=== PATIENT | male | born 1965 | race Two or more races ===

== ENCOUNTER 2017-06-22 12:40 | Outpatient (CLI) | payer MEDICARE, MEDICAID ==
[~2017-06-22 12:40] MED LIST: NORCO 5-325 TA1 EACH ORAL
--- NOTE | 2017-06-22 14:46 | Diagnostic Imaging Report ---
Indications: Headaches and facial droop for one month Technique: Sagittal and axial T1 weighted fast spin-echo, axial T2-weighted fat saturated fast spin echo, T2-weighted FLAIR, T2*-weighted gradient echo, and diffusion sequences of the brain were performed prior to IV gadolinium administration. Axial and coronal T1 weighted fast spin-echo was performed following IV gadolinium administration. Findings: Comparison: None Few small circumscribed foci of T2 signal hyperintensity scattered throughout bilateral cerebral periventricular and deep white matter.. No evidence of mass or hemorrhage, other signal abnormality, mass effect, midline shift, hydrocephalus, or increased intracranial pressure. No restricted diffusion. No abnormal enhancement. Central vascular flow voids preserved. IMPRESSION: Bilateral cerebral white matter oligofocal T2 signal hyperintensity, nonspecific, likely chronic microangiopathic Otherwise Negative MRI of the brain without and with gadolinium.
--- NOTE | 2017-06-23 07:48 | Cardiology Report ---
APPROVED REPORT EXAM: Two-dimensional and M-mode echocardiogram with Doppler and color Doppler. INDICATION CVA/TIA M-Mode DIMENSIONS IVSd1.4 (0.7-1.1cm)Left Atrium (MM)4.0 (1.6-4.0cm) LVDd4.7 (3.5-5.6cm)Aortic Root3.5 (2.0-3.7cm) PWd1.3 (0.7-1.1cm)Aortic Cusp Exc.2.3 (1.5-2.0cm) LVDs3.0 (2.5-4.0cm) PWs2.0 cm Normal left ventricular chamber size, systolic function and wall motion. Left ventricular ejection fraction estimated to be 65-70 %. Mild left ventricular hypertrophy. Anterior Echo-free space, may be due to pericardial fat or effusion. All other cardiac chamber sizes are within normal limits. Mild focal aortic valve sclerosis with adequate cusp excursion. Mildly thickened mitral valve leaflets with normal excursion. Mild mitral annulus and aortic root calcification. Normal pulmonic valve structure. Normal tricuspid valve structure. IVC at normal size with physiologic collapse. No thrombus seen. A color flow and spectral Doppler study was performed and revealed: Trace aortic regurgitation. Trace mitral regurgitation. Mitral diastolic velocities suggest reduced left ventricular relaxation c/w mild LV diastolic dysfunction (Grade I). Trace to mild tricuspid regurgitation. Tricuspid systolic velocities suggests peak right ventricular systolic pressure of 33 mmHg.
== END 2017-06-22 14:40 | disposition home or self-care (01) ==
LOC: MRI 12:40
DX: R51 Headache (principal); R29.810 Facial weakness; Z86.73 Personal history of transient ischemic attack (TIA), and cerebral infarction without residual deficits
CPT/HCPCS: 70553; 93306; A9585

== ENCOUNTER 2020-01-25 15:44 | Inpatient (IN) | payer MEDICARE, MEDICAID ==
[~2020-01-25] VITALS: Ht 160 cm; Wt 77.1 kg
--- NOTE | 2020-01-25 15:55 | NUR ---
ED Nurse Note: ambulated to ed from home c/o abdominal pain 03/10 and nvd x 01/21/20. pt reports current diarrhea. ao4 nad vss. ambulates with steady gait. changed into gown; attached to monitor; safety measures met. pt had one episode of diarrhea after received from triage. bedside commode at bedside.
[2020-01-25] MEDS ORDERED: ISENTRESS400 MG ORAL (15:58)
[2020-01-25] MEDS ORDERED: EPIVIR150 MG ORAL (15:58)
--- NOTE | 2020-01-25 16:11 | Emergency Room Report ---
History of Present Illness General Chief Complaint: Nausea, Vomiting, and Diarrhea Source: Patient Present Illness HPI 54-year-old male history of HIV presents with acute nausea vomiting diarrhea x3 days no aggravating relieving factors severity is moderate, constant he endorses abdominal cramps denies any blood hematemesis, patient has been taking his HIV medication every day except for the past 3 days due to inability to tolerate p.o. patient states his HIV is undetectable and his CD4 count is greater than 700 patient presents for evaluation Allergies: Coded Allergies: ATAZANAVIR (Verified Allergy, Unknown, 11/24/11) CALCIUM CARBONATE (Verified Allergy, Unknown, 11/24/11) DELAVIRDINE (Verified Allergy, Unknown, 11/24/11) MAGNESIUM (Verified Allergy, Unknown, 11/24/11) MOXIFLOXACIN (Verified Allergy, Unknown, RASH,ITCH, 11/26/11) TENOFOVIR (Verified Allergy, Unknown, 11/24/11) VENLAFAXINE (Verified Allergy, Unknown, 11/24/11) COVID-19 Screening Contact w/high risk pt: No Recent Travel to affected area: No Experienced COVID-19 symptoms?: No Patient History Past Medical History: see triage record Reviewed Nursing Documentation: PMH: Agreed; PSxH: Agreed Nursing Documentation-PMH Past Medical History: No History, Except For Hx Cardiac Problems: No - HIV Review of Systems All Other Systems: negative except mentioned in HPI Physical Exam Vital Signs Date Time Temp Pulse Resp B/P (MAP) Pulse Ox O2 Delivery O2 Flow Rate FiO2 01/25/20 15:52 98.4 102 17 147/88 (107) 99 Room Air Sp02 EP Interpretation: reviewed, normal General Appearance: well appearing, no apparent distress, alert Head: normocephalic, atraumatic Eyes: bilateral eye PERRL, bilateral eye EOMI ENT: uvula midline, dry mucus membranes Neck: supple, thyroid normal, supple/symm/no masses Respiratory: lungs clear, no respiratory distress, no retraction, no accessory muscle use Cardiovascular #1: normal peripheral pulses, no edema, no gallop, no murmur, tachycardia Gastrointestinal: non tender, soft, no guarding, no rebound Musculoskeletal: normal inspection Neurologic: alert, oriented x3 Psychiatric: mood/affect normal Skin: no rash, warm/dry Medical Decision Making Diagnostic Impression: Primary Impression: Nausea, vomiting, and diarrhea Additional Impressions: Enteritis Pancreatitis Qualified Codes: K85.90 - Acute pancreatitis without necrosis or infection, unspecified Dehydration ER Course 54-year-old male history of HIV presents with elevated lipase, generalized abdominal pain, differential diagnosis includes enteritis, pancreatitis, diverticulitis Patient with pancreatitis as well as enteritis We will admit patient for supportive care pain control patient admitted to Dr. Mcleod Laboratory Tests Test 01/25/20 16:20 White Blood Count 7.3 K/UL (4.8-10.8) Red Blood Count 5.02 M/UL (4.70-6.10) Hemoglobin 17.4 G/DL (14.2-18.0) Hematocrit 50.1 % (42.0-52.0) Mean Corpuscular Volume 100 FL (80-99) H Mean Corpuscular Hemoglobin 34.6 PG (27.0-31.0) H Mean Corpuscular Hemoglobin Concent 34.7 G/DL (32.0-36.0) Red Cell Distribution Width 11.6 % (11.6-14.8) Platelet Count 251 K/UL (150-450) Mean Platelet Volume 7.5 FL (6.5-10.1) Neutrophils (%) (Auto) 47.4 % (45.0-75.0) Lymphocytes (%) (Auto) 33.3 % (20.0-45.0) Monocytes (%) (Auto) 16.8 % (1.0-10.0) H Eosinophils (%) (Auto) 0.1 % (0.0-3.0) Basophils (%) (Auto) 2.3 % (0.0-2.0) H Sodium Level 137 MMOL/L (136-145) Potassium Level 3.3 MMOL/L (3.5-5.1) L Chloride Level 99 MMOL/L (98-107) Carbon Dioxide Level 27 MMOL/L (21-32) Anion Gap 11 mmol/L (5-15) Blood Urea Nitrogen 21 mg/dL (7-18) H Creatinine 1.4 MG/DL (0.55-1.30) H Estimated Glomerular Filtration Rate 52.4 mL/min (>60) Glucose Level 103 MG/DL (74-106) Calcium Level 8.9 MG/DL (8.5-10.1) Total Bilirubin 0.9 MG/DL (0.2-1.0) Aspartate Amino Transferase (AST) 41 U/L (15-37) H Alanine Aminotransferase (ALT) 48 U/L (12-78) Alkaline Phosphatase 148 U/L (46-116) H Total Protein 8.9 G/DL (6.4-8.2) H Albumin 4.4 G/DL (3.4-5.0) Globulin 4.5 g/dL Albumin/Globulin Ratio 1.0 (1.0-2.7) Lipase 860 U/L (73-393) H Last Vital Signs Date Time Temp Pulse Resp B/P (MAP) Pulse Ox O2 Delivery O2 Flow Rate FiO2 01/25/20 15:52 98.4 102 17 147/88 (107) 99 Room Air Disposition: ADMITTED INPATIENT Condition: Stable Harsh Burton MD Jan 25, 2020 16:11
[2020-01-25] MEDS ORDERED: Omnipaque-300 100ml vial INJ PRN (16:15)
--- NOTE | 2020-01-25 16:15 | NUR ---
ED Nurse Note: iv access established. blood and urine collected; sent down to lab
[2020-01-25 16:39] VITALS: BP 147/88
[2020-01-25 16:53] LABS: BASOPHILS % (AUTO) 2.3 % (0.0-2.0); EOSINOPHILS % (AUTO) 0.1 % (0.0-3.0); HEMATOCRIT 50.1 % (42.0-52.0); HEMOGLOBIN 17.4 G/DL (14.2-18.0); LYMPHOCYTES % (AUTO) 33.3 % (20.0-45.0); MEAN CORPUSCULAR VOLUME 100 FL (80-99); MONOCYTES % (AUTO) 16.8 % (1.0-10.0); NEUTROPHILS % (AUTO) 47.4 % (45.0-75.0); PLATELET COUNT 251 K/UL (150-450); RED BLOOD COUNT 5.02 M/UL (4.70-6.10); RED CELL DISTRIBUTION WIDTH 11.6 % (11.6-14.8); WHITE BLOOD COUNT 7.3 K/UL (4.8-10.8)
[2020-01-25 17:08] LABS: ANION GAP 11 mmol/L (5-15); BLOOD UREA NITROGEN 21 mg/dL (7-18); CALCIUM 8.9 MG/DL (8.5-10.1); CARBON DIOXIDE 27 MMOL/L (21-32); CHLORIDE 99 MMOL/L (98-107); CREATININE 1.4 MG/DL (0.55-1.30); POTASSIUM 3.3 MMOL/L (3.5-5.1); SODIUM 137 MMOL/L (136-145)
[2020-01-25 17:25] LABS: ALANINE AMINOTRANSFERASE 48 U/L (12-78); ALBUMIN 4.4 G/DL (3.4-5.0); ALKALINE PHOSPHATASE 148 U/L (46-116); ASPARTATE AMINO TRANSFERASE 41 U/L (15-37); BILIRUBIN,TOTAL 0.9 MG/DL (0.2-1.0)
--- NOTE | 2020-01-25 18:00 | NUR ---
ED Nurse Note: patient resting in bed with no acute signs of distress. repostioned for comfort. denies pain at this time. discussed plan of care; pt aware of pending admission. belongings list completed with patient.
--- NOTE | 2020-01-25 18:27 | Diagnostic Imaging Report ---
Indication: Pain Technique: CT of the abdomen and pelvis utilizing automated exposure control with intravenous contrast. Venous scanning performed. Axial, sagittal and coronal reformats presented. CT dose: Total DLP 309.8 mGycm; CTDI vol 6.3 mGy Comparison: 08/10/2016 Findings: Dependent and expiratory atelectatic changes noted in the lung bases. Partially imaged heart normal in size. No pericardial effusion. There is a tiny hiatal hernia. Hepatic contour appears smooth. No focal hepatic mass lesion appreciated on this single phase exam. Hepatic veins and portal veins appear patent. There are no CT evident gallstones or pericholecystic inflammatory changes. No biliary ductal dilatation. Spleen, adrenal glands and pancreas unremarkable. No peripancreatic inflammatory changes or fluid collections. Kidneys enhance symmetrically. There is a punctate subcentimeter nonobstructing stone in the midpole the left kidney. Small low-attenuation well-circumscribed foci noted in the kidneys most likely representing cysts although they're too small for definitive characterization. No evidence of hydronephrosis or perinephric stranding. Bladder is decompressed, precluding reliable evaluation. Coarse calcifications noted within a mildly prominent prostate. There is no free intraperitoneal air or fluid. Fluid attenuation noted within some nondistended small bowel loops as well as within the right colon. No pericolonic or perienteric inflammatory stranding. There is colonic diverticulosis without evidence of acute diverticulitis. The appendix is not definitively visualized however there are no focal inflammatory changes in the right lower quadrant to suggest an acute appendicitis. The dominant is normal in caliber. Small mesenteric lymph nodes are noted, nonspecific in etiology and possibly reactive. Small bilateral fat-containing inguinal hernias are noted. There is a tiny fat-containing umbilical hernia. Mild degenerative changes are noted in the spine. There is grade 1 anterolisthesis of L5 on S1 by means of chronic pars defects at this level. Similar findings were noted previously. No acute fracture identified. IMPRESSION: * Findings may suggest a mild enterocolitis/diarrheal illness in the appropriate clinical setting. * No evidence of small bowel obstruction. * Diverticulosis without evidence of acute diverticulitis. * Tiny hiatal hernia. * Subcentimeter nonobstructing stone in the midpole the left kidney. No evidence of hydronephrosis bilaterally. * Prior decompressed, precluding reliable evaluation. Consider correlation with urinalysis as clinically indicated. * Prominent prostate with coarse central calcifications. * Degenerative changes in the spine with anterolisthesis of L5 on S1 by means of chronic pars defects at this level. Similar findings were seen previously. The CT scanner at [facility] is accredited by the [employer] and the scans are performed using protocols designed to limit radiation exposure to as low as reasonably achievable to attain images of sufficient resolution adequate for diagnostic evaluation.
[2020-01-25 18:30] VITALS: BP 143/98
[2020-01-25] MEDS ORDERED: Nitroglycerin Subl 0.4mg tab SL PRN (18:30)
[2020-01-25] MEDS ORDERED: Metoclopramide 10mg/2ml Inj IVP PRN (18:30)
[2020-01-25] MEDS ORDERED: Miralax 17gm pkt ORAL PRN (18:30)
[2020-01-25] MEDS ORDERED: DiphenhydrAMINE 25mg Tab ORAL PRN (18:30)
[2020-01-25 19:30] VITALS: BP 127/76
--- NOTE | 2020-01-25 19:39 | Diagnostic Imaging Report ---
Indication: Abdominal pain Technique: Multiplanar grayscale and duplex Doppler imaging of the abdomen Comparison: None Findings: Pancreas is obscured by overlying bowel gas and not well visualized. Liver echogenicity is homogeneous. Right hepatic lobe is within normal limits for size. No focal hepatic mass lesion is appreciated sonographically. Imaged hepatic veins appear patent. The main portal vein appears patent with normal direction of flow. No gallstones or gallbladder wall thickening is appreciated. Sonographic Robledo sign reported as negative. There is no intrahepatic or extrahepatic biliary ductal dilatation. Common bile duct measures 4.2 mm in diameter. Kidneys are symmetric in size and demonstrate normal echogenicity. There is a subcentimeter echogenic focus within the lower pole left kidney which may represent a nonobstructing stone. No evidence of hydronephrosis bilaterally. Spleen normal in size. Imaged portions of the proximal aorta normal in caliber. Mid and distal aorta are not well seen. IMPRESSION: * Possible subcentimeter nonobstructing left renal stone. No evidence hydronephrosis bilaterally. * No evidence of cholelithiasis or biliary ductal dilatation. This corresponds with the [facility] preliminary report.
--- NOTE | 2020-01-25 20:00 | NUR ---
ED Nurse Note: report given to dudley ash. patient to be admitted to [facility] 309-2 under the care of jayna vail.
--- NOTE | 2020-01-25 20:25 | NUR ---
TRANSFER TO FLOOR: Patient transferred to [facility] 309-2 as ordered, per jayna vail. Report given to dudley ash. patient stable for transfer. transported to unit via gurney with [facility]. all belongings, belongings list and admission packet sent with patient.
--- NOTE | 2020-01-25 20:40 | NUR ---
NURSE NOTES: Patient received from ER for admission for pancreatitis. Patient is aox4. Belongings verified at bedside, medications placed in security bag to be sent to pharmacy R# [id number]. Oriented patient to new room and unit. patient denies pain at this time, just abdominal discomfort due to diarrhea. Hat provided for diarrhea collection per protocol, patient aware. Call light provided. Nonskid socks provided. Educated of fall risk prevention, verbalized understanding. Will continue plan of care.
[2020-01-25 20:45] VITALS: BP_SYST 134; BP_SYST 151; BP_DIAS 75; BP_DIAS 86
[2020-01-25] MEDS: Heparin 5000 units/ml inj SUBQ SCH (21:00)
[2020-01-25] MEDS ORDERED: SYMBICORT 16010.2 G1 IH (21:27)
[2020-01-25] MEDS ORDERED: VENTOLIN HFA18 GM INH (21:27)
[2020-01-25] MEDS: D5 1/2NS 1,000 ML IV SCH (21:44)
[2020-01-26] VITALS: BP 132/72
[2020-01-26 04:00] VITALS: BP 111/63
[2020-01-26 06:21] LABS: HEMATOCRIT 39.5 % (42.0-52.0); HEMOGLOBIN 14.8 G/DL (14.2-18.0); MEAN CORPUSCULAR VOLUME 95 FL (80-99); PLATELET COUNT 185 K/UL (150-450); RED BLOOD COUNT 4.15 M/UL (4.70-6.10); RED CELL DISTRIBUTION WIDTH 10.8 % (11.6-14.8); WHITE BLOOD COUNT 4.8 K/UL (4.8-10.8)
[2020-01-26 06:44] LABS: ALANINE AMINOTRANSFERASE 36 U/L (12-78); ALBUMIN 3.2 G/DL (3.4-5.0); ALBUMIN/GLOBULIN RATIO 0.9 (1.0-2.7); ALKALINE PHOSPHATASE 109 U/L (46-116); AMYLASE 48 U/L (25-115); ANION GAP 7 mmol/L (5-15); ASPARTATE AMINO TRANSFERASE 28 U/L (15-37); BILIRUBIN,TOTAL 0.7 MG/DL (0.2-1.0); BLOOD UREA NITROGEN 14 mg/dL (7-18); CALCIUM 8.2 MG/DL (8.5-10.1); CARBON DIOXIDE 26 MMOL/L (21-32); CHLORIDE 106 MMOL/L (98-107); CREATININE 1.2 MG/DL (0.55-1.30); POTASSIUM 3.3 MMOL/L (3.5-5.1); SODIUM 139 MMOL/L (136-145)
--- NOTE | 2020-01-26 07:15 | NUR ---
NURSE NOTES: Report received from Rosalino RN, rounds made. Patient sleeping in left lateral position in bed. Respirations even/unlabored on RA. No distress. NPO. IV (D5 1/2 NS at 75 ml/hr) infusing to RAC, site asymptomatic. Call light in reach, bed in lowest position, will continue to monitor.
--- NOTE | 2020-01-26 07:28 | NUR ---
HAND-OFF: Report given to Neha FRANKS. Pt in stable condition, kept NPO.
[2020-01-26 08:00] VITALS: BP 114/65
--- NOTE | 2020-01-26 08:11 | NUR ---
CASE MANAGEMENT: INITIAL REVIEW 01/25/2020 54 YO M PRESENTED TO ED FROM HOME CC: N/V/D PMHx: HIV is undetectable and his CD4 count is greater than 700 SI:PANCREATITIS. T 98.4 HR 102 RR 17 B/P 147/88 SATS 99% ON RA LABS: K 3.3 BUN 21 CR 1.4 AST 41 ALP 148 LIPASE 860 IS: ZOFRAN IV X1 PEPCID IV X1 NS BOLUS X2 CT A/P (-) US ABD Possible left nephrolithiasis. PATIENT ADMITTED TO MED/SURG 01/25/2020 @ 1835 DCP: HOME PLAN OF CARE: NPO GI EVAL Addendum: 01/26/20 at 0931 by Marie Xavier CM INTERQUAL MET
--- NOTE | 2020-01-26 08:45 | NUR ---
NURSE NOTES: Dr. Mcleod notified of AM labs (K 3.3 and Lipase 138 (was previously 860), orders received for KCL 40 meq PO x1, see order.
[2020-01-26] MEDS: Pantoprazole Inj IV SCH (10:05)
[2020-01-26] MEDS: Heparin 5000 units/ml inj SUBQ SCH ×2 (10:05→21:44)
[2020-01-26] MEDS: D5 1/2NS 1,000 ML IV SCH ×2 (10:11→23:53)
[2020-01-26 12:00] VITALS: BP 122/63
--- NOTE | 2020-01-26 13:00 | NUR ---
NURSE NOTES: Patient denies NV, or abdominal pain. Flatulence present. No diarrhea. Abdomen soft, non-tender, non-distended. VSS. Remains NPO. Awaiting on GI and ID consults, patient aware, verbalized understanding.
--- NOTE | 2020-01-26 13:38 | Consultation ---
History of Present Illness General Date patient seen: Jan 26, 2020 Chief Complaint: Nausea, Vomiting, and Diarrhea Present Illness HPI 54-year-old male history of HIV, asthma presented to ER with acute nausea vomiting diarrhea x3 days. patient states his HIV is undetectable and his CD4 count is greater than 700. The CT of abdomen showed possible enteritis and his Lipase was elevated. He is admitted for further management. Allergies: Coded Allergies: ATAZANAVIR (Verified Allergy, Unknown, 11/24/11) CALCIUM CARBONATE (Verified Allergy, Unknown, 11/24/11) DELAVIRDINE (Verified Allergy, Unknown, 11/24/11) MAGNESIUM (Verified Allergy, Unknown, 11/24/11) MOXIFLOXACIN (Verified Allergy, Unknown, RASH,ITCH, 11/26/11) TENOFOVIR (Verified Allergy, Unknown, 11/24/11) VENLAFAXINE (Verified Allergy, Unknown, 11/24/11) Medication History Scheduled Lamivudine* (Epivir*), 150 MG ORAL DAILY, (Reported) Raltegravir (Isentress), 400 MG ORAL EVERY 12 HOURS, (Reported) Scheduled PRN Hydrocodone Bit/Acetaminophen 5-325* (Lincoln 5-325*), 1 TAB ORAL Q6H PRN for For Pain Miscellaneous Medications Albuterol Sulfate (Ventolin Hfa), Unknown Dose INH, (Reported) Budesonide/Formoterol Fumarate (Symbicort 160-4.5 Mcg Inhaler), Unknown Dose IH, (Reported) Patient History Healthcare decision maker Resuscitation status Full Code Advanced Directive on File Past Medical/Surgical History Past Medical/Surgical History: (1) History of asthma (2) HIV disease Review of Systems All Other Systems: negative except mentioned in HPI Physical Exam General Appearance: WD/WN, no apparent distress Lines, tubes and drains: peripheral HEENT: normocephalic, atraumatic Neck: non-tender, normal alignment Respiratory/Chest: chest wall non-tender, lungs clear Breasts: no masses Cardiovascular/Chest: normal peripheral pulses Abdomen: normal bowel sounds, non tender Genitourinary/Rectal: normal genital exam Extremities: normal range of motion Last 24 Hour Vital Signs Date Time Temp Pulse Resp B/P (MAP) Pulse Ox O2 Delivery O2 Flow Rate FiO2 01/26/20 08:00 99.3 70 20 114/65 (81) 97 01/26/20 04:00 98.2 76 20 111/63 (79) 99 01/26/20 00:00 98.0 68 20 132/72 (92) 94 01/25/20 21:34 Room Air 01/25/20 20:45 98.0 79 18 134/75 (94) 99 01/25/20 20:25 98.4 71 14 127/76 99 Room Air 01/25/20 19:30 98.4 71 14 127/76 99 Room Air 01/25/20 18:30 98.4 80 16 143/98 100 Room Air 01/25/20 16:39 98.4 84 17 147/88 99 Room Air 01/25/20 15:52 98.4 102 17 147/88 (107) 99 Room Air Intake and Output 01/25/20 01/26/20 19:00 07:00 Intake Total 675 ml Balance 675 ml Intake IV Total 675 ml # Voids 4 # Bowel Movements 1 Laboratory Tests Test 01/25/20 16:20 01/26/20 05:25 White Blood Count 7.3 K/UL (4.8-10.8) 4.8 K/UL (4.8-10.8) Red Blood Count 5.02 M/UL (4.70-6.10) 4.15 M/UL (4.70-6.10) L Hemoglobin 17.4 G/DL (14.2-18.0) 14.8 G/DL (14.2-18.0) Hematocrit 50.1 % (42.0-52.0) 39.5 % (42.0-52.0) L Mean Corpuscular Volume 100 FL (80-99) H 95 FL (80-99) Mean Corpuscular Hemoglobin 34.6 PG (27.0-31.0) H 35.8 PG (27.0-31.0) H Mean Corpuscular Hemoglobin Concent 34.7 G/DL (32.0-36.0) 37.6 G/DL (32.0-36.0) H Red Cell Distribution Width 11.6 % (11.6-14.8) 10.8 % (11.6-14.8) L Platelet Count 251 K/UL (150-450) 185 K/UL (150-450) Mean Platelet Volume 7.5 FL (6.5-10.1) 6.5 FL (6.5-10.1) Neutrophils (%) (Auto) 47.4 % (45.0-75.0) % (45.0-75.0) Lymphocytes (%) (Auto) 33.3 % (20.0-45.0) % (20.0-45.0) Monocytes (%) (Auto) 16.8 % (1.0-10.0) H % (1.0-10.0) Eosinophils (%) (Auto) 0.1 % (0.0-3.0) % (0.0-3.0) Basophils (%) (Auto) 2.3 % (0.0-2.0) H % (0.0-2.0) Sodium Level 137 MMOL/L (136-145) 139 MMOL/L (136-145) Potassium Level 3.3 MMOL/L (3.5-5.1) L 3.3 MMOL/L (3.5-5.1) L Chloride Level 99 MMOL/L (98-107) 106 MMOL/L (98-107) Carbon Dioxide Level 27 MMOL/L (21-32) 26 MMOL/L (21-32) Anion Gap 11 mmol/L (5-15) 7 mmol/L (5-15) Blood Urea Nitrogen 21 mg/dL (7-18) H 14 mg/dL (7-18) Creatinine 1.4 MG/DL (0.55-1.30) H 1.2 MG/DL (0.55-1.30) Estimat Glomerular Filtration Rate 52.4 mL/min (>60) > 60 mL/min (>60) Glucose Level 103 MG/DL (74-106) 93 MG/DL (74-106) Calcium Level 8.9 MG/DL (8.5-10.1) 8.2 MG/DL (8.5-10.1) L Total Bilirubin 0.9 MG/DL (0.2-1.0) 0.7 MG/DL (0.2-1.0) Aspartate Amino Transf (AST/SGOT) 41 U/L (15-37) H 28 U/L (15-37) Alanine Aminotransferase (ALT/SGPT) 48 U/L (12-78) 36 U/L (12-78) Alkaline Phosphatase 148 U/L (46-116) H 109 U/L (46-116) Total Protein 8.9 G/DL (6.4-8.2) H 6.6 G/DL (6.4-8.2) Albumin 4.4 G/DL (3.4-5.0) 3.2 G/DL (3.4-5.0) L Globulin 4.5 g/dL 3.4 g/dL Albumin/Globulin Ratio 1.0 (1.0-2.7) 0.9 (1.0-2.7) L Lipase 860 U/L (73-393) H 138 U/L (73-393) Differential Total Cells Counted 100 Neutrophils % (Manual) 50 % (45-75) Lymphocytes % (Manual) 41 % (20-45) Monocytes % (Manual) 7 % (1-10) Eosinophils % (Manual) 2 % (0-3) Basophils % (Manual) 0 % (0-2) Band Neutrophils 0 % (0-8) Platelet Estimate Adequate Platelet Morphology Normal Red Blood Cell Morphology Normal Activated Partial Thromboplast Time 28 SEC (23-33) Amylase Level 48 U/L (25-115) Height (Feet): 5 Height (Inches): 3.00 Weight (Pounds): 170 Medications Current Medications Medications (Trade) Dose Ordered Sig/Edgard Route PRN Reason Start Time Stop Time Status Last Admin Dose Admin Acetaminophen (Tylenol) 650 mg Q4H PRN ORAL fever 01/25/20 18:30 02/24/20 18:29 Dextrose (Dextrose 50%) 25 ml Q30M PRN IV Hypoglycemia 01/25/20 18:30 04/24/20 18:29 Dextrose (Dextrose 50%) 50 ml Q30M PRN IV Hypoglycemia 01/25/20 18:30 04/24/20 18:29 Dextrose/Sodium Chloride 1,000 ml @ 75 mls/hr [id number] IV 01/25/20 21:00 02/24/20 20:59 01/26/20 10:11 Diphenhydramine HCl (Benadryl) 25 mg Q6H PRN ORAL Itching/Pruritis 01/25/20 18:30 02/24/20 18:29 Heparin Sodium (Porcine) (Heparin 5000 units/ml) 5,000 units EVERY 12 HOURS SUBQ 01/25/20 21:00 03/10/20 20:59 01/26/20 10:05 Iohexol (OMNIPAQUE-300 100ml) 100 ml NOW PRN INJ Radiology Procedure 01/25/20 16:15 01/27/20 16:08 Metoclopramide HCl (Reglan) 10 mg Q6H PRN IVP servere nauasea 01/25/20 18:30 02/24/20 18:29 Nitroglycerin (Ntg) 0.4 mg Q5M X 3 DOSES PRN SL Prn Chest Pain 01/25/20 18:30 02/24/20 18:29 Ondansetron HCl (Zofran) 4 mg Q6H PRN IVP Nausea & Vomiting 01/25/20 18:30 02/24/20 18:29 Pantoprazole (Protonix) 40 mg DAILY IV 01/26/20 09:00 02/25/20 08:59 01/26/20 10:05 Polyethylene Glycol (Miralax) 17 gm HSPRN PRN ORAL Constipation 01/25/20 18:30 02/24/20 18:29 Promethazine HCl (Phenergan) 25 mg Q6H PRN IM Refractory N/V 01/25/20 18:30 02/24/20 18:29 Temazepam (Restoril) 15 mg HSPRN PRN ORAL Insomnia 01/25/20 18:30 02/01/20 18:29 01/25/20 21:44 Assessment/Plan Problem List: (1) Nausea, vomiting, and diarrhea ICD Codes: R11.2 - Nausea with vomiting, unspecified; R19.7 - Diarrhea, unspecified SNOMED: 3212738 (2) Pancreatitis ICD Codes: K85.90 - Acute pancreatitis without necrosis or infection, unspecified SNOMED: 92624514 Qualifiers: Qualified Codes: K85.90 - Acute pancreatitis without necrosis or infection, unspecified (3) Enteritis ICD Codes: K52.9 - Noninfective gastroenteritis and colitis, unspecified SNOMED: 98470221 (4) History of asthma ICD Codes: Z87.09 - Personal history of other diseases of the respiratory system SNOMED: 407133031 (5) HIV disease ICD Codes: B20 - Human immunodeficiency virus [HIV] disease SNOMED: 20104365 Assessment/Plan: NPO IV fluids H2 blockers symptomatic treatment check electrolytes pain management dvt prophylaxis ID to look into HIV meds. Yi Matthew MD Jan 26, 2020 13:38
[2020-01-26 16:00] VITALS: BP 115/72
--- NOTE | 2020-01-26 16:35 | NUR ---
NURSE NOTES: Dr. Ceasr and Eric [employer] notified of new patient in 309 and updated with current status (NPO, no NV, last diarrhea 01/24 which was collected for Cdiff), orders received for clear liquid diet. Patient updated with new order, verbalized understanding.
--- NOTE | 2020-01-26 18:35 | NUR ---
NURSE NOTES: Patient tolerated Clear liquids well, no NV, no abdominal pain, no diarrhea. Will continue to monitor.
--- NOTE | 2020-01-26 19:00 | NUR ---
HAND-OFF: Report given to Killian FRANKS, rounds made. Patient stable. Patient reports he had x2 diarrheal BMs at 1400 and 1500.
--- NOTE | 2020-01-26 19:10 | NUR ---
NURSE NOTES: Pt. received from TINY Solomon. Pt. AAOx4, on room air, no complaints of pain, breathing is even and unlabored. IV site right AC 20 g intact, asymptomatic, running D5 1/2 NS at 75cc/hr. Bed is low and locked, side rails x2 up, and call light is in reach. Will continue to monitor.
[2020-01-26 20:00] VITALS: BP 128/72
--- NOTE | 2020-01-26 21:45 | NUR ---
NURSE NOTES: Pt. dropped the PRN temazepam on the floor during medication administration. The medication was contaminated, wasted, and another temazepam was pulled from the pyxis and administered to the patient.
--- NOTE | 2020-01-26 22:22 | History & Physical ---
History and Physical History & Physicial Sandeep Mcleod MD Jan 26, 2020 22:22
[2020-01-27] VITALS: BP 130/92
--- NOTE | 2020-01-27 00:20 | NUR ---
NURSE NOTES: Pt. up to void, observed ambulating with steady gait. No complaints of nausea, no vomiting and no diarrhea at this time. Pt. requests to take at home medication for past medical history, pt. stated it was not urgent but wanted to bring it up. Will discuss with primary physician. Will continue to monitor.
--- NOTE | 2020-01-27 03:45 | History and Physical Report ---
DATE OF ADMISSION: 01/25/2020 CHIEF COMPLAINT: Abdominal pain associated with nausea, vomiting, and diarrhea. HISTORY OF PRESENT ILLNESS: This is a 54-year-old gentleman with past medical history significant for HIV/AIDS diagnosed in 1989 with CD4 counts of greater than 800, viral load undetectable about three months ago, who presented to the emergency department complaining about abdominal pain associated with nausea, vomiting, and diarrhea. The patient stated that it has been going on for the past three days and shortly after initial evaluation in the emergency, the patient had a CT scan of the abdomen that showed enteritis with elevated lipase and subsequently the patient was admitted to the hospital with abdominal pain possible due to the pancreatitis. PAST MEDICAL HISTORY/PAST SURGICAL HISTORY: As above. History of HIV/AIDS diagnosed in 1989 with CD4 counts greater than 800 and viral load undetectable, history of bilateral lower extremity pain, and appendectomy over 10 years ago. The patient has history of asthma as well. ALLERGIES: 1. Atazanavir. 2. Calcium carbonate. 3. Delavirdine. 4. Magnesium. 5. Venlafaxine 6. Tenofovir. MEDICATIONS: At home significant for Epivir as well as Isentress. SOCIAL HISTORY: The patient socially drinks. No substance or alcohol abuse. He is disabled. 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 FAMILY HISTORY: Noncontributory. REVIEW OF SYSTEMS: Mostly as above. Denies any dysuria, frequency, or hematuria. Denies any hemoptysis or hematochezia. Complained about nausea and vomiting. Complained about diarrhea. Complained about abdominal pain. Complained about bilateral lower extremity pain. PHYSICAL EXAMINATION: VITAL SIGNS: On admission, temperature 98.4, pulse of 103, respirations 17, blood pressure 147/88. GENERAL: The patient is awake, responsive, in no acute distress. HEAD AND NECK: Pupils are equal and reactive to light. Extraocular movements intact. Neck was supple. No JVD. LUNGS: Clear. No wheezing or rales. HEART: S1, S2. Regular rhythm. No murmurs or gallops. ABDOMEN: Soft, not distended. Tenderness in the epigastric area. No rebound tenderness. No fluid shift. Mildly obese. EXTREMITIES: No cyanosis, clubbing, or edema NEUROLOGIC: Cranial nerves II through XII are grossly intact. Motor is 5/5 in all extremities. Gait is intact. RECTAL: Refused and deferred. GENITOURINARY: Refused and deferred. PSYCHIATRIC: Mood and affect is intact. LABORATORY AND DIAGNOSTIC DATA: On admission from the emergency department, WBC of 7.3, hemoglobin of 17, hematocrit of 50, platelet is 251,000. Sodium 137, potassium 3.3, chloride 99, bicarbonate 27, BUN 21, creatinine 1.4, GFR 52, glucose is 103, calcium is 8.9, AST of 41, ALT of 48, alkaline phosphate is 148, lipase is 860. PTT of 28. CT scan of the abdomen and pelvis showed mild enterocolitis and diarrheal illness in appropriate clinical setting. No evidence of small-bowel obstruction. Diverticulosis without acute diverticulitis. Tiny hiatal hernia. A subcentimeter nonobstructive stone in the mid pole of the left kidney. No evidence of hydronephrosis; however, decompressed, preclude reliable evidence, consider correlation. Prominent prostate with coarse central calcification and degenerative changes of the spine. ASSESSMENT: 1. Abdominal pain, most likely secondary to pancreatitis. 2. Enteritis with history of diarrhea. 3. Acute kidney injury, most likely secondary to hypovolemia and dehydration. 4. Hypokalemia. 5. HIV/AIDS. 6. History of asthma. PLAN: Admit the patient to Med/Surg unit. We will follow up with laboratory. NPO. IV hydration. Pain medication. We will follow up with Infectious Disease consultation as well as Dr. Matthew consultation. Code status is full code. DVT prophylaxis, heparin subcu. Sandeep Mcleod M.D. DR: ERIK/CHASE JOB#: [id number] CC: MK
[2020-01-27 04:00] VITALS: BP 98/47
--- NOTE | 2020-01-27 07:29 | NUR ---
NURSE NOTES: Report received from Killian FRANKS, rounds made. Patient resting in right lateral position in bed. No distress. Respirations even/unlabored on RA. Denies pain, NV, SOB, diarrhea. IV D5 1/2 NS at 75 ml/hr to RAC, site asymptomatic. Appetite good on clear liquids. Flatulence present. Call light in reach, bed in lowest position, will continue to monitor.
--- NOTE | 2020-01-27 07:35 | NUR ---
HAND-OFF: Report given to TINY Solomon.
[2020-01-27 08:00] VITALS: BP 119/58
[2020-01-27] MEDS ORDERED: D5 1/2NS 1000ml IV ONE ×2 (08:38→17:46)
[2020-01-27] MEDS: Pantoprazole Inj IV SCH (08:49)
[2020-01-27] MEDS: Heparin 5000 units/ml inj SUBQ SCH ×2 (08:50→20:57)
[2020-01-27 12:00] VITALS: BP 117/61
--- NOTE | 2020-01-27 13:50 | Consultation ---
History of Present Illness General Date patient seen: Jan 27, 2020 Chief Complaint: Nausea, Vomiting, and Diarrhea Present Illness HPI 54 y/o M with hx of HIV (CD4 >700, VL undetectable 3months ago; dx 1989) on HAART, appendectomy ~10 yrs ago, asthma presented to ED on 01/25/20 with 7 days of nausea, vomiting, diarrhea and abdominal cramps. Lipase elevated and CT abd/ p showed possible enteritis Denied hematemesis, urinary symptoms, f/c, SOB, cough, URI symptoms. Allergies: Coded Allergies: ATAZANAVIR (Verified Allergy, Unknown, 11/24/11) CALCIUM CARBONATE (Verified Allergy, Unknown, 11/24/11) DELAVIRDINE (Verified Allergy, Unknown, 11/24/11) MAGNESIUM (Verified Allergy, Unknown, 11/24/11) MOXIFLOXACIN (Verified Allergy, Unknown, RASH,ITCH, 11/26/11) TENOFOVIR (Verified Allergy, Unknown, 11/24/11) VENLAFAXINE (Verified Allergy, Unknown, 11/24/11) Medication History Scheduled Lamivudine* (Epivir*), 150 MG ORAL DAILY, (Reported) Raltegravir (Isentress), 400 MG ORAL EVERY 12 HOURS, (Reported) Scheduled PRN Hydrocodone Bit/Acetaminophen 5-325* ([place] 5-325*), 1 TAB ORAL Q6H PRN for For Pain Miscellaneous Medications Albuterol Sulfate (Ventolin Hfa), Unknown Dose INH, (Reported) Budesonide/Formoterol Fumarate (Symbicort 160-4.5 Mcg Inhaler), Unknown Dose IH, (Reported) Patient History Healthcare decision maker Resuscitation status Full Code Advanced Directive on File Patient History Narrative Pmhx: as above Shx: The patient socially drinks. No substance or alcohol abuse. He is disabled. 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 HEAD AND NECK: Pupils are equal and reactive to light. Extraocular movements intact. Neck was supple. No JVD. LUNGS: Clear. No wheezing or rales. HEART: S1, S2. Regular rhythm. No murmurs or gallops. ABDOMEN: Soft, not distended. Tenderness in the epigastric area. No rebound tenderness. No fluid shift. Mildly obese. EXTREMITIES: No cyanosis, clubbing, or edema Last 24 Hour Vital Signs Date Time Temp Pulse Resp B/P (MAP) Pulse Ox O2 Delivery O2 Flow Rate FiO2 01/27/20 12:00 98.8 69 18 117/61 (79) 97 01/27/20 09:00 Room Air 01/27/20 08:00 99.1 78 18 119/58 (78) 97 01/27/20 04:00 98.5 72 20 98/47 (64) 96 01/27/20 00:00 98.7 70 18 130/92 (105) 96 01/26/20 21:00 Room Air 01/26/20 20:00 98.8 76 16 128/72 (90) 96 01/26/20 16:00 98.9 79 20 115/72 (86) 97 Intake and Output 01/26/20 01/27/20 19:00 07:00 Intake Total 2007 ml 1530 ml Balance 2007 ml 1530 ml Intake Oral 1182 ml 480 ml IV Total 825 ml 1050 ml # Voids 13 3 # Bowel Movements 5 2 Height (Feet): 5 Height (Inches): 3.00 Weight (Pounds): 170 Medications Current Medications Medications (Trade) Dose Ordered Sig/Edgard Route PRN Reason Start Time Stop Time Status Last Admin Dose Admin Acetaminophen (Tylenol) 650 mg Q4H PRN ORAL fever 01/25/20 18:30 02/24/20 18:29 Dextrose (Dextrose 50%) 25 ml Q30M PRN IV Hypoglycemia 01/25/20 18:30 04/24/20 18:29 Dextrose (Dextrose 50%) 50 ml Q30M PRN IV Hypoglycemia 01/25/20 18:30 04/24/20 18:29 Dextrose/Sodium Chloride 1,000 ml @ 75 mls/hr [id number] IV 01/25/20 21:00 02/24/20 20:59 01/26/20 23:53 Diphenhydramine HCl (Benadryl) 25 mg Q6H PRN ORAL Itching/Pruritis 01/25/20 18:30 02/24/20 18:29 Heparin Sodium (Porcine) (Heparin 5000 units/ml) 5,000 units EVERY 12 HOURS SUBQ 01/25/20 21:00 03/10/20 20:59 01/27/20 08:50 Iohexol (OMNIPAQUE-300 100ml) 100 ml NOW PRN INJ Radiology Procedure 01/25/20 16:15 01/27/20 16:08 Metoclopramide HCl (Reglan) 10 mg Q6H PRN IVP servere nauasea 01/25/20 18:30 02/24/20 18:29 Nitroglycerin (Ntg) 0.4 mg Q5M X 3 DOSES PRN SL Prn Chest Pain 01/25/20 18:30 02/24/20 18:29 Ondansetron HCl (Zofran) 4 mg Q6H PRN IVP Nausea & Vomiting 01/25/20 18:30 02/24/20 18:29 Pantoprazole (Protonix) 40 mg DAILY IV 01/26/20 09:00 02/25/20 08:59 01/27/20 08:49 Polyethylene Glycol (Miralax) 17 gm HSPRN PRN ORAL Constipation 01/25/20 18:30 02/24/20 18:29 Promethazine HCl (Phenergan) 25 mg Q6H PRN IM Refractory N/V 01/25/20 18:30 02/24/20 18:29 Temazepam (Restoril) 15 mg HSPRN PRN ORAL Insomnia 01/25/20 18:30 02/01/20 18:29 01/26/20 21:42 Assessment/Plan Assessment/Plan: Abx: None Assessment: R/o COVID 19 (presenting with GI symptoms) Likely Acute pancreatitis Diarrhea/Enteritis -Cdiff neg -CT abd/p: : Findings may suggest a mild enterocolitis/diarrheal illness in the appropriate clinical setting. No evidence of small bowel obstruction. Diverticulosis without evidence of acute diverticulitis. Tiny hiatal hernia. Subcentimeter nonobstructing stone in the midpole the left kidney. No evidence of hydronephrosis bilaterally. Prior decompressed, precluding reliable evaluation. Prominent prostate with coarse central calcifications. 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 Similar findings were seen previously. -Abd US: Possible subcentimeter nonobstructing left renal stone. No evidence hydronephrosis bilaterally. No evidence of cholelithiasis or biliary ductal dilatation. Afebrile No leukocytosis MARGOTH, improving HIV (CD4 >700, VL undetectable 3months ago; dx 1989) on HAART appendectomy ~10 yrs ago asthma Plan: -Cotinue to monitor off abx -f/u cx -Monitor CBC/CMP, temperatures -stool cx, Influenza sc -continue HAART: Issentress and Epzicom -COVID 19 testing -Droplets/Contact/Eye shield -Can likely be discharged tomorrow on home isolation -If patient, medically stable for discharge can discharge following home isolation until results of COVID 19 is back .They should stay at home and separate themselves from other people in their home (stay in different room, use separate bathroom. Wear a facemask when need to be in the same room. Avoid sharing household items. If COVID19 test is positive, they should continue isolation for 7 days from onset of symptoms or 3 days after fever resolution, which ever is longer. Please refer to [email or web address] Thank you for consulting [facility]. Will continue to follow along with you. Discussed with TINY. Karen Aden M.D. Jan 27, 2020 13:50
[2020-01-27] MEDS: D5 1/2NS 1,000 ML IV SCH (14:36)
--- NOTE | 2020-01-27 14:50 | NUR ---
NURSE NOTES: Patient notified of new order for droplet precautions/influenza swab and must stay in room/wear mask, verbalized understanding. Influenza swab obtained from right nare, sent down to lab, as ordered.
[2020-01-27 16:00] VITALS: BP 120/63
--- NOTE | 2020-01-27 16:02 | Internal Med Progress Note ---
Subjective Date of Service: Jan 27, 2020 Physician Name Charles Vickers Attending Physician Sandeep Mcleod MD Current Medications Medications (Trade) Dose Ordered Sig/Edgard Route PRN Reason Start Time Stop Time Status Last Admin Dose Admin Acetaminophen (Tylenol) 650 mg Q4H PRN ORAL fever 01/25/20 18:30 02/24/20 18:29 Dextrose (Dextrose 50%) 25 ml Q30M PRN IV Hypoglycemia 01/25/20 18:30 04/24/20 18:29 Dextrose (Dextrose 50%) 50 ml Q30M PRN IV Hypoglycemia 01/25/20 18:30 04/24/20 18:29 Dextrose/Sodium Chloride 1,000 ml @ 75 mls/hr [id number] IV 01/25/20 21:00 02/24/20 20:59 01/27/20 14:36 Diphenhydramine HCl (Benadryl) 25 mg Q6H PRN ORAL Itching/Pruritis 01/25/20 18:30 02/24/20 18:29 Heparin Sodium (Porcine) (Heparin 5000 units/ml) 5,000 units EVERY 12 HOURS SUBQ 01/25/20 21:00 03/10/20 20:59 01/27/20 08:50 Iohexol (OMNIPAQUE-300 100ml) 100 ml NOW PRN INJ Radiology Procedure 01/25/20 16:15 01/27/20 16:08 Metoclopramide HCl (Reglan) 10 mg Q6H PRN IVP servere nauasea 01/25/20 18:30 02/24/20 18:29 Nitroglycerin (Ntg) 0.4 mg Q5M X 3 DOSES PRN SL Prn Chest Pain 01/25/20 18:30 02/24/20 18:29 Ondansetron HCl (Zofran) 4 mg Q6H PRN IVP Nausea & Vomiting 01/25/20 18:30 02/24/20 18:29 Pantoprazole (Protonix) 40 mg DAILY IV 01/26/20 09:00 02/25/20 08:59 01/27/20 08:49 Polyethylene Glycol (Miralax) 17 gm HSPRN PRN ORAL Constipation 01/25/20 18:30 02/24/20 18:29 Promethazine HCl (Phenergan) 25 mg Q6H PRN IM Refractory N/V 01/25/20 18:30 02/24/20 18:29 Temazepam (Restoril) 15 mg HSPRN PRN ORAL Insomnia 01/25/20 18:30 02/01/20 18:29 01/26/20 21:42 Allergies: Coded Allergies: ATAZANAVIR (Verified Allergy, Unknown, 11/24/11) CALCIUM CARBONATE (Verified Allergy, Unknown, 11/24/11) DELAVIRDINE (Verified Allergy, Unknown, 11/24/11) MAGNESIUM (Verified Allergy, Unknown, 11/24/11) MOXIFLOXACIN (Verified Allergy, Unknown, RASH,ITCH, 11/26/11) TENOFOVIR (Verified Allergy, Unknown, 11/24/11) VENLAFAXINE (Verified Allergy, Unknown, 11/24/11) ROS Limited/Unobtainable: No Constitutional: Reports: no symptoms HEENT: Reports: no symptoms Cardiovascular: Reports: no symptoms Respiratory: Reports: no symptoms Gastrointestinal/Abdominal: Reports: abdominal pain, diarrhea, nausea, vomiting Genitourinary: Reports: no symptoms Neurologic/Psychiatric: Reports: no symptoms Subjective 54 YO M admitted with nausea, vomiting and diarrhea. Cover for Int med-Dr Mcleod Objective Last Vital Signs Date Time Temp Pulse Resp B/P (MAP) Pulse Ox O2 Delivery O2 Flow Rate FiO2 01/27/20 12:00 98.8 69 18 117/61 (79) 97 01/27/20 09:00 Room Air Microbiology Date/Time Source Procedure Growth Status 01/27/20 14:50 Nasopharynx - Final Complete 01/27/20 14:50 Nasopharynx - Final Complete 01/25/20 22:00 Stool Clostridium difficile Toxin Assay - Final Complete Intake and Output 01/26/20 01/27/20 19:00 07:00 Intake Total 2006 ml 1530 ml Balance 2006 ml 1530 ml Intake Oral 1182 ml 480 ml IV Total 825 ml 1050 ml # Voids 13 3 # Bowel Movements 5 2 Objective PHYSICAL EXAMINATION: GENERAL: The patient is awake, responsive, in no acute distress. HEAD AND NECK: Pupils are equal and reactive to light. Extraocular movements intact. Neck was supple. No JVD. LUNGS: Clear. No wheezing or rales. HEART: S1, S2. Regular rhythm. No murmurs or gallops. ABDOMEN: Soft, not distended. Tenderness in the epigastric area. No rebound tenderness. No fluid shift. Mildly obese. EXTREMITIES: No cyanosis, clubbing, or edema NEUROLOGIC: Cranial nerves II through XII are grossly intact. Motor is 5/5 in all extremities. Gait is intact. RECTAL: Refused and deferred. GENITOURINARY: Refused and deferred. PSYCHIATRIC: Mood and affect is intact. Assessment/Plan Assessment/Plan ASSESSMENT: 1. Abdominal pain, most likely secondary to pancreatitis. 2. Enteritis with history of diarrhea. 3. Acute kidney injury, most likely secondary to hypovolemia and dehydration. 4. Hypokalemia. 5. HIV/AIDS. 6. History of asthma. PLAN: Admit the patient to Med/Surg unit. We will follow up with laboratory. NPO. IV hydration. Pain medication. We will follow up with Infectious Disease consultation as well as Dr. Matthew consultation. Code status is full code. DVT prophylaxis, heparin subcu. Charles Vickers MD Jan 27, 2020 16:02
--- NOTE | 2020-01-27 17:14 | Pulmonology Progress Note ---
Assessment/Plan Problems: (1) Nausea, vomiting, and diarrhea (2) Pancreatitis (3) Enteritis (4) History of asthma (5) HIV disease Assessment/Plan feeling better watch off abx IV fluids f/u lipase, Amylase Resume HAART meds by ID stool cultures ordered on clear liquid diet. Subjective ROS Limited/Unobtainable: No Allergies: Coded Allergies: ATAZANAVIR (Verified Allergy, Unknown, 11/24/11) CALCIUM CARBONATE (Verified Allergy, Unknown, 11/24/11) DELAVIRDINE (Verified Allergy, Unknown, 11/24/11) MAGNESIUM (Verified Allergy, Unknown, 11/24/11) MOXIFLOXACIN (Verified Allergy, Unknown, RASH,ITCH, 11/26/11) TENOFOVIR (Verified Allergy, Unknown, 11/24/11) VENLAFAXINE (Verified Allergy, Unknown, 11/24/11) Objective Last 24 Hour Vital Signs Date Time Temp Pulse Resp B/P (MAP) Pulse Ox O2 Delivery O2 Flow Rate FiO2 01/27/20 16:00 98.6 63 18 120/63 (82) 96 01/27/20 12:00 98.8 69 18 117/61 (79) 97 01/27/20 09:00 Room Air 01/27/20 08:00 99.1 78 18 119/58 (78) 97 01/27/20 04:00 98.5 72 20 98/47 (64) 96 01/27/20 00:00 98.7 70 18 130/92 (105) 96 01/26/20 21:00 Room Air 01/26/20 20:00 98.8 76 16 128/72 (90) 96 Intake and Output 01/26/20 01/27/20 19:00 07:00 Intake Total 2006 ml 1530 ml Balance 2007 ml 1530 ml Intake Oral 1182 ml 480 ml IV Total 825 ml 1050 ml # Voids 13 3 # Bowel Movements 5 2 Objective General Appearance: WD/WN HEENT: normocephalic Respiratory/Chest: chest wall non-tender, lungs clear Cardiovascular: normal rate, regular rhythm Abdomen: normal bowel sounds, no organomegaly Extremities: no cyanosis Skin: no ulcers Neurologic/Psychiatric: peoplesoft hrms developer II-XII grossly normal Microbiology Date/Time Source Procedure Growth Status 01/27/20 14:50 Nasopharynx - Final Complete 01/27/20 14:50 Nasopharynx - Final Complete 01/25/20 22:00 Stool Clostridium difficile Toxin Assay - Final Complete Current Medications Medications (Trade) Dose Ordered Sig/Edgard Route PRN Reason Start Time Stop Time Status Last Admin Dose Admin Acetaminophen (Tylenol) 650 mg Q4H PRN ORAL fever 01/25/20 18:30 02/24/20 18:29 Dextrose (Dextrose 50%) 25 ml Q30M PRN IV Hypoglycemia 01/25/20 18:30 04/24/20 18:29 Dextrose (Dextrose 50%) 50 ml Q30M PRN IV Hypoglycemia 01/25/20 18:30 04/24/20 18:29 Dextrose/Sodium Chloride 1,000 ml @ 75 mls/hr [id number] IV 01/25/20 21:00 02/24/20 20:59 01/27/20 14:36 Diphenhydramine HCl (Benadryl) 25 mg Q6H PRN ORAL Itching/Pruritis 01/25/20 18:30 02/24/20 18:29 Heparin Sodium (Porcine) (Heparin 5000 units/ml) 5,000 units EVERY 12 HOURS SUBQ 01/25/20 21:00 03/10/20 20:59 01/27/20 08:50 Metoclopramide HCl (Reglan) 10 mg Q6H PRN IVP servere nauasea 01/25/20 18:30 02/24/20 18:29 Nitroglycerin (Ntg) 0.4 mg Q5M X 3 DOSES PRN SL Prn Chest Pain 01/25/20 18:30 02/24/20 18:29 Ondansetron HCl (Zofran) 4 mg Q6H PRN IVP Nausea & Vomiting 01/25/20 18:30 02/24/20 18:29 Pantoprazole (Protonix) 40 mg DAILY IV 01/26/20 09:00 02/25/20 08:59 01/27/20 08:49 Polyethylene Glycol (Miralax) 17 gm HSPRN PRN ORAL Constipation 01/25/20 18:30 02/24/20 18:29 Promethazine HCl (Phenergan) 25 mg Q6H PRN IM Refractory N/V 01/25/20 18:30 02/24/20 18:29 Temazepam (Restoril) 15 mg HSPRN PRN ORAL Insomnia 01/25/20 18:30 02/01/20 18:29 01/26/20 21:42 Yi Matthew MD Jan 27, 2020 17:14
--- NOTE | 2020-01-27 17:30 | NUR ---
NURSE NOTES: Patient notified of new order for COVID 19 swab and to transfer to [facility] per hospital protocol, verbalized understanding. COVID 19 swab obtained from left nare and sent down to lab.
--- NOTE | 2020-01-27 18:30 | General Progress Note ---
Assessment/Plan Assessment/Plan: Assessment - Resolved N/V - Resolved diarrhea - HIV (+) - mild, transient elevation in lipase - doubt pancreatitis Recommendations - check stool cultures - check C Diff (took abx 2 mo ago) - advance diet - IV hydration Subjective Allergies: Coded Allergies: ATAZANAVIR (Verified Allergy, Unknown, 11/24/11) CALCIUM CARBONATE (Verified Allergy, Unknown, 11/24/11) DELAVIRDINE (Verified Allergy, Unknown, 11/24/11) MAGNESIUM (Verified Allergy, Unknown, 11/24/11) MOXIFLOXACIN (Verified Allergy, Unknown, RASH,ITCH, 11/26/11) TENOFOVIR (Verified Allergy, Unknown, 11/24/11) VENLAFAXINE (Verified Allergy, Unknown, 11/24/11) Objective Last 24 Hour Vital Signs Date Time Temp Pulse Resp B/P (MAP) Pulse Ox O2 Delivery O2 Flow Rate FiO2 01/27/20 16:00 98.6 63 18 120/63 (82) 96 01/27/20 12:00 98.8 69 18 117/61 (79) 97 01/27/20 09:00 Room Air 01/27/20 08:00 99.1 78 18 119/58 (78) 97 01/27/20 04:00 98.5 72 20 98/47 (64) 96 01/27/20 00:00 98.7 70 18 130/92 (105) 96 01/26/20 21:00 Room Air 01/26/20 20:00 98.8 76 16 128/72 (90) 96 Intake and Output 01/26/20 01/27/20 19:00 07:00 Intake Total 2006 ml 1530 ml Balance 2007 ml 1530 ml Intake Oral 1182 ml 480 ml IV Total 825 ml 1050 ml # Voids 13 3 # Bowel Movements 5 2 Height (Feet): 5 Height (Inches): 3.00 Weight (Pounds): 170 Cynthia Alcantara MD Jan 27, 2020 18:30
--- NOTE | 2020-01-27 18:50 | NUR ---
NURSE NOTES: Patient transferred to [facility] via bed on RA, in stable condition. All belongings and chart sent with patient.
--- NOTE | 2020-01-27 18:55 | NUR ---
HAND-OFF: Report given to Jyoti FRANKS, rounds made. Patient walking around room. Belongings reviewed, wallet/cotton amount. Reinforced to patient that he cannot leave his room. IV pump/IVF transferred with patient. Addendum: 01/27/20 at 2027 by Neha Mcbride RN Endorsed that patient still needs a stool culture and stool for C diff collection.
--- NOTE | 2020-01-27 19:05 | NUR ---
NURSE NOTES: Received report from Neha FRANKS, pt. in room walking around- bronwyn appears to be stable pt. aware not to walk out of room as he was not aware- pt. aware he was swabbed for Covid r/u, pt. appears to be A/O x's 4-able to make needs known, no signs or symptoms of acute cardiac or respiratory distress noted, per Charge nurse Janette- pt. does not need transfer order and continue [facility] charting as pt. is still considered medsurge and on SDU for observation, pt. appears to be resting comfortably, call light within easy reach, bed in lowest position and safety brakes engaged, LFA 22G D5 1/2NS at 75cc/hr- IV intact and patent, safety measures continued, pt. teaching donee and pt. oriented to room, will continue with plan of care- belonging list signed and pt. wishes to keep cotton at bedside- see belongings list signed. 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
[2020-01-27 20:00] VITALS: BP 123/65
[2020-01-27] MEDS: Epzicom tab ORAL SCH (20:55)
[2020-01-27] MEDS: Isentress 400mg tab ORAL SCH (20:55)
--- NOTE | 2020-01-27 23:29 | NUR ---
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 appears to be resting comfortably in room watching television, will continue to monitor pt. and with plan of care.
[2020-01-28] VITALS: BP 102/59
[2020-01-28] MEDS: D5 1/2NS 1,000 ML IV SCH ×2 (00:40→14:55)
--- NOTE | 2020-01-28 01:15 | Consultation ---
DATE OF CONSULTATION: 01/27/2020 CHIEF COMPLAINT: I was asked to see this patient by Dr. Sandeep Mcleod for evaluation of possible pancreatitis. HISTORY OF PRESENT ILLNESS: The patient is a pleasant 54-year-old man who was in his usual state of health until about a week ago when he developed diarrheal illness with some nausea and vomiting. He denies any fever or cough. He lives alone. He did not drink any alcohol. He did have some mild epigastric abdominal pain. He had some Lomotil and his diarrhea improved. He has had no previous history of pancreatitis and has history of HIV positivity for many years. His last bowel movement was yesterday. His last vomiting was about three days ago. He feels better. He has mild elevation in his lipase. CT scan did not show any significant evidence of pancreatitis. He has not had a previous history of pancreatitis. PAST MEDICAL HISTORY: History of HIV, CD4 count of greater than 800, status post appendectomy, history of asthma. FAMILY HISTORY: Noncontributory. SOCIAL HISTORY: The patient lives alone. He drinks occasional and social. He does not smoke. He did take antibiotics about 2 months ago. REVIEW OF SYSTEMS: Otherwise negative. PHYSICAL EXAMINATION: GENERAL: A pleasant man, seen in his room. HEENT: Normocephalic and atraumatic. Sclerae anicteric. Oropharynx clear. NECK: Supple. CHEST: Clear to auscultation. CARDIOVASCULAR: Revealed regular rate. ABDOMEN: Soft and flat. Good bowel sounds. There is no organomegaly or significant tenderness. EXTREMITIES: No edema. NEUROLOGIC: Nonfocal. LABORATORY DATA: Noted. A CT scan was reviewed. ASSESSMENT: This patient presents with mild and dramatic elevation in lipase which was transient, already resolved. He does not have any abdominal symptoms or CT scan findings to suggest clinical pancreatitis. I suspect that the lipase is not pancreatic in origin and is already resolved. The patient's diet can be advanced, and he should be hydrated as needed. He needed to have a simple viral gastroenteritis. However, given his recent history of antibiotic use, I will check Clostridium difficile. Likewise, the stool cultures would be worthwhile since he has a history of HIV positivity. RECOMMENDATIONS: 1. Check stool cultures. 2. Check stool Clostridium difficile. 3. Advance diet. 4. Hydration. 5. Follow laboratory parameters and symptoms. Thank you for asking me to participate in the care of this patient. Cynthia Alcantara M.D. DR: Brisa JOB#: [id number] CC:
[2020-01-28 04:00] VITALS: BP 106/69
[2020-01-28 06:40] LABS: ANION GAP 8 mmol/L (5-15); BLOOD UREA NITROGEN 10 mg/dL (7-18); CALCIUM 8.1 MG/DL (8.5-10.1); CARBON DIOXIDE 26 MMOL/L (21-32); CHLORIDE 108 MMOL/L (98-107); SODIUM 142 MMOL/L (136-145)
--- NOTE | 2020-01-28 06:54 | NUR ---
HAND-OFF: Report given to Jax Mcdonnell, pt. remains stable and no signs of distress noted- aware to f/u on any abnormal am labs.
--- NOTE | 2020-01-28 07:24 | NUR ---
NURSE NOTES: Received report from Jyoti FRANKS. Pt. on droplet isolation Covid19. Will cont. to monitor.
[2020-01-28 08:00] VITALS: BP 115/70
[2020-01-28 08:25] LABS: HEMATOCRIT 37.6 % (42.0-52.0); MEAN CORPUSCULAR VOLUME 95 FL (80-99); PLATELET COUNT 139 K/UL (150-450); RED BLOOD COUNT 3.94 M/UL (4.70-6.10); RED CELL DISTRIBUTION WIDTH 11.1 % (11.6-14.8); WHITE BLOOD COUNT 5.2 K/UL (4.8-10.8)
[2020-01-28] MEDS: Heparin 5000 units/ml inj SUBQ SCH ×2 (09:00→21:00)
--- NOTE | 2020-01-28 09:00 | NUR ---
NURSE NOTES: Pt. up sitting at edge of the bed. A/O x 4. No sign of distress. No c/o pain at present. IV at the left FA #[id number]. in placed patent/intact running D5 1/2 NS at 75cc/hr. Tolerating well. Call light within reach. Will cont. to monitor.
[2020-01-28] MEDS: Epzicom tab ORAL SCH (09:32)
[2020-01-28] MEDS: Pantoprazole Inj IV SCH (09:32)
[2020-01-28] MEDS: Isentress 400mg tab ORAL SCH ×2 (09:32→21:43)
[2020-01-28 12:00] VITALS: BP 118/68
--- NOTE | 2020-01-28 13:33 | Internal Med Progress Note ---
Subjective Date of Service: Jan 28, 2020 Physician Name VickersCharles Attending Physician Sandeep Mcleod MD Current Medications Medications (Trade) Dose Ordered Sig/Edgard Route PRN Reason Start Time Stop Time Status Last Admin Dose Admin Abacavir/ Lamivudine (Epzicom) 1 tab DAILY ORAL 01/27/20 21:00 02/26/20 20:59 01/28/20 09:32 Acetaminophen (Tylenol) 650 mg Q4H PRN ORAL fever 01/25/20 18:30 02/24/20 18:29 Dextrose (Dextrose 50%) 25 ml Q30M PRN IV Hypoglycemia 01/25/20 18:30 04/24/20 18:29 Dextrose (Dextrose 50%) 50 ml Q30M PRN IV Hypoglycemia 01/25/20 18:30 04/24/20 18:29 Dextrose/Sodium Chloride 1,000 ml @ 75 mls/hr [id number] IV 01/25/20 21:00 02/24/20 20:59 01/28/20 00:40 Diphenhydramine HCl (Benadryl) 25 mg Q6H PRN ORAL Itching/Pruritis 01/25/20 18:30 02/24/20 18:29 Heparin Sodium (Porcine) (Heparin 5000 units/ml) 5,000 units EVERY 12 HOURS SUBQ 01/25/20 21:00 03/10/20 20:59 01/27/20 20:57 Metoclopramide HCl (Reglan) 10 mg Q6H PRN IVP servere nauasea 01/25/20 18:30 02/24/20 18:29 Nitroglycerin (Ntg) 0.4 mg Q5M X 3 DOSES PRN SL Prn Chest Pain 01/25/20 18:30 02/24/20 18:29 Ondansetron HCl (Zofran) 4 mg Q6H PRN IVP Nausea & Vomiting 01/25/20 18:30 02/24/20 18:29 Pantoprazole (Protonix) 40 mg DAILY IV 01/26/20 09:00 02/25/20 08:59 01/28/20 09:32 Polyethylene Glycol (Miralax) 17 gm HSPRN PRN ORAL Constipation 01/25/20 18:30 02/24/20 18:29 Promethazine HCl (Phenergan) 25 mg Q6H PRN IM Refractory N/V 01/25/20 18:30 02/24/20 18:29 Raltegravir (Isentress) 400 mg Q12HR ORAL 01/27/20 21:00 02/26/20 20:59 01/28/20 09:32 Temazepam (Restoril) 15 mg HSPRN PRN ORAL Insomnia 01/25/20 18:30 02/01/20 18:29 01/27/20 20:56 Allergies: Coded Allergies: ATAZANAVIR (Verified Allergy, Unknown, 11/24/11) CALCIUM CARBONATE (Verified Allergy, Unknown, 11/24/11) DELAVIRDINE (Verified Allergy, Unknown, 11/24/11) MAGNESIUM (Verified Allergy, Unknown, 11/24/11) MOXIFLOXACIN (Verified Allergy, Unknown, RASH,ITCH, 11/26/11) TENOFOVIR (Verified Allergy, Unknown, 11/24/11) VENLAFAXINE (Verified Allergy, Unknown, 11/24/11) ROS Limited/Unobtainable: No Constitutional: Reports: no symptoms HEENT: Reports: no symptoms Cardiovascular: Reports: no symptoms Respiratory: Reports: no symptoms Gastrointestinal/Abdominal: Reports: no symptoms Genitourinary: Reports: no symptoms Neurologic/Psychiatric: Reports: no symptoms Subjective 54 YO M admitted with nausea, vomiting and diarrhea. Cover for Int [email or web address]-Dr Mcleod Objective Last Vital Signs Date Time Temp Pulse Resp B/P (MAP) Pulse Ox O2 Delivery O2 Flow Rate FiO2 01/28/20 12:00 Room Air 01/28/20 11:36 67 01/28/20 08:00 96.8 20 115/70 (85) 99 Laboratory Tests Test 01/28/20 04:00 White Blood Count 5.2 K/UL (4.8-10.8) Red Blood Count 3.94 M/UL (4.70-6.10) L Hemoglobin 14.0 G/DL (14.2-18.0) L Hematocrit 37.6 % (42.0-52.0) L Mean Corpuscular Volume 95 FL (80-99) Mean Corpuscular Hemoglobin 35.4 PG (27.0-31.0) H Mean Corpuscular Hemoglobin Concent 37.1 G/DL (32.0-36.0) H Red Cell Distribution Width 11.1 % (11.6-14.8) L Platelet Count 139 K/UL (150-450) L Mean Platelet Volume 5.5 FL (6.5-10.1) L Neutrophils (%) (Auto) % (45.0-75.0) Lymphocytes (%) (Auto) % (20.0-45.0) Monocytes (%) (Auto) % (1.0-10.0) Eosinophils (%) (Auto) % (0.0-3.0) Basophils (%) (Auto) % (0.0-2.0) Differential Total Cells Counted 100 Neutrophils % (Manual) 16 % (45-75) L Lymphocytes % (Manual) 68 % (20-45) H Monocytes % (Manual) 15 % (1-10) H Eosinophils % (Manual) 1 % (0-3) Basophils % (Manual) 0 % (0-2) Band Neutrophils 0 % (0-8) Platelet Estimate Decreased L Platelet Morphology Normal Anisocytosis 1+ Sodium Level 142 MMOL/L (136-145) Potassium Level 3.0 MMOL/L (3.5-5.1) L Chloride Level 108 MMOL/L (98-107) H Carbon Dioxide Level 26 MMOL/L (21-32) Anion Gap 8 mmol/L (5-15) Blood Urea Nitrogen 10 mg/dL (7-18) Creatinine 1.0 MG/DL (0.55-1.30) Estimat Glomerular Filtration Rate > 60 mL/min (>60) Glucose Level 102 MG/DL (74-106) Calcium Level 8.1 MG/DL (8.5-10.1) L Microbiology Date/Time Source Procedure Growth Status 01/27/20 14:50 Nasopharynx - Final Complete 01/27/20 14:50 Nasopharynx - Final Complete 01/25/20 22:00 Stool Clostridium difficile Toxin Assay - Final Complete Intake and Output 01/27/20 01/28/20 19:00 07:00 Intake Total 2460 ml 850 ml Balance 2460 ml 850 ml Intake Oral 1710 ml IV Total 750 ml 850 ml # Voids 2 2 Objective PHYSICAL EXAMINATION: GENERAL: The patient is awake, responsive, in no acute distress. HEAD AND NECK: Pupils are equal and reactive to light. Extraocular movements intact. Neck was supple. No JVD. LUNGS: Clear. No wheezing or rales. HEART: S1, S2. Regular rhythm. No murmurs or gallops. ABDOMEN: Soft, not distended. Tenderness in the epigastric area. No rebound tenderness. No fluid shift. Mildly obese. EXTREMITIES: No cyanosis, clubbing, or edema NEUROLOGIC: Cranial nerves II through XII are grossly intact. Motor is 5/5 in all extremities. Gait is intact. RECTAL: Refused and deferred. GENITOURINARY: Refused and deferred. PSYCHIATRIC: Mood and affect is intact. Assessment/Plan Assessment/Plan ASSESSMENT: 1. Abdominal pain/ pancreatitis. 2. Enteritis with history of diarrhea. 3. Acute kidney injury, most likely secondary to hypovolemia and dehydration. 4. Hypokalemia. 5. HIV/AIDS. 6. History of asthma. 7. Hypokalemia PLAN: 1. Step down unit 2. Tolerating diet 3. Infectious Disease consult=Dr Aden 4. Pulmonary consult=Dr. Matthew 5. full code. 6. DVT prophylaxis=heparin subcu. 7. Oral potassium suppliment Charles Vickers MD Jan 28, 2020 13:33
--- NOTE | 2020-01-28 13:37 | General Progress Note ---
Assessment/Plan Assessment/Plan: Assessment - Resolved N/V - Resolved diarrhea - Resolved mild lipase elevation - HIV (+) Recommendations - check stool cultures - await BM - check C Diff (took abx 2 mo ago) - await BM - po diet as tolerated - hydration and electrolyte replacement Subjective Allergies: Coded Allergies: ATAZANAVIR (Verified Allergy, Unknown, 11/24/11) CALCIUM CARBONATE (Verified Allergy, Unknown, 11/24/11) DELAVIRDINE (Verified Allergy, Unknown, 11/24/11) MAGNESIUM (Verified Allergy, Unknown, 11/24/11) MOXIFLOXACIN (Verified Allergy, Unknown, RASH,ITCH, 11/26/11) TENOFOVIR (Verified Allergy, Unknown, 11/24/11) VENLAFAXINE (Verified Allergy, Unknown, 11/24/11) Subjective Above noted d/w RN patient without any complaints no diarrhea, no vomiting tolerating PO No stool collection since no BM moved to [facility] for r/o COVID Objective Last 24 Hour Vital Signs Date Time Temp Pulse Resp B/P (MAP) Pulse Ox O2 Delivery O2 Flow Rate FiO2 01/28/20 12:00 Room Air 01/28/20 11:36 67 01/28/20 09:00 Room Air 01/28/20 08:00 96.8 70 20 115/70 (85) 99 01/28/20 08:00 Room Air 01/28/20 07:40 66 01/28/20 04:00 98.1 78 18 106/69 (81) 97 01/28/20 04:00 Room Air 01/28/20 03:36 65 01/28/20 00:00 67 01/28/20 00:00 Room Air 01/28/20 00:00 98.0 71 18 102/59 (73) 98 01/27/20 20:00 Room Air 01/27/20 20:00 Room Air 01/27/20 20:00 98.4 75 18 123/65 (84) 97 01/27/20 19:24 73 01/27/20 16:00 98.6 63 18 120/63 (82) 96 Intake and Output 01/27/20 01/28/20 18:59 06:59 Intake Total 2460 ml 850 ml Balance 2460 ml 850 ml Intake Oral 1710 ml IV Total 750 ml 850 ml # Voids 2 2 Laboratory Tests 01/28/20 04:00: White Blood Count 5.2, Red Blood Count 3.94L, Hemoglobin 14.0L, Hematocrit 37.6L , Mean Corpuscular Volume 95, Mean Corpuscular Hemoglobin 35.4H, Mean Corpuscular Hemoglobin Concent 37.1H, Red Cell Distribution Width 11.1L, Platelet Count 139L, Mean Platelet Volume 5.5L, Neutrophils (%) (Auto) , Lymphocytes (%) (Auto) , Monocytes (%) (Auto) , Eosinophils (%) (Auto) , Basophils (%) (Auto) , Differential Total Cells Counted 100, Neutrophils % ( Manual) 16L, Lymphocytes % (Manual) 68H, Monocytes % (Manual) 15H, Eosinophils % (Manual) 1, Basophils % (Manual) 0, Band Neutrophils 0, Platelet Estimate DecreasedL, Platelet Morphology Normal, Anisocytosis 1+, Sodium Level 142, Potassium Level 3.0L, Chloride Level 108H, Carbon Dioxide Level 26, Anion Gap 8 , Blood Urea Nitrogen 10, Creatinine 1.0, Estimat Glomerular Filtration Rate > 60, Glucose Level 102, Calcium Level 8.1L Height (Feet): 5 Height (Inches): 3.00 Weight (Pounds): 170 Cynthia Alcantara MD Jan 28, 2020 13:37
--- NOTE | 2020-01-28 14:00 | NUR ---
NURSE NOTES: Pt. pleasant and cooperative with care. Pt. self reposition. Anticipates needs. Pt. afebrile. No coughing, no n/v noted.
[2020-01-28 16:00] VITALS: BP 137/81
--- NOTE | 2020-01-28 16:28 | Pulmonology Progress Note ---
Assessment/Plan Problems: (1) Nausea, vomiting, and diarrhea (2) Pancreatitis (3) Enteritis (4) History of asthma (5) HIV disease Assessment/Plan feeling better watch off abx IV fluids f/u lipase, Amylase Resume HAART meds by ID stool cultures ordered From ID note: -If patient, medically stable for discharge can discharge following home isolation until results of COVID 19 is back .They should stay at home and separate themselves from other people in their home (stay in different room, use separate bathroom. Wear a facemask when need to be in the same room. Avoid sharing household items. If COVID19 test is positive, they should continue isolation for 7 days from onset of symptoms or 3 days after fever resolution, which ever is longer. Please refer to [email or web address] Subjective ROS Limited/Unobtainable: No Constitutional: Reports: no symptoms HEENT: Repors: no symptoms Respiratory: Reports: no symptoms Allergies: Coded Allergies: ATAZANAVIR (Verified Allergy, Unknown, 11/24/11) CALCIUM CARBONATE (Verified Allergy, Unknown, 11/24/11) DELAVIRDINE (Verified Allergy, Unknown, 11/24/11) MAGNESIUM (Verified Allergy, Unknown, 11/24/11) MOXIFLOXACIN (Verified Allergy, Unknown, RASH,ITCH, 11/26/11) TENOFOVIR (Verified Allergy, Unknown, 11/24/11) VENLAFAXINE (Verified Allergy, Unknown, 11/24/11) Objective Last 24 Hour Vital Signs Date Time Temp Pulse Resp B/P (MAP) Pulse Ox O2 Delivery O2 Flow Rate FiO2 01/28/20 16:00 Room Air 01/28/20 15:20 64 01/28/20 12:00 Room Air 01/28/20 12:00 97.0 73 21 118/68 (85) 99 01/28/20 11:36 67 01/28/20 09:00 Room Air 01/28/20 08:00 96.8 70 20 115/70 (85) 99 01/28/20 08:00 Room Air 01/28/20 07:40 66 01/28/20 04:00 98.1 78 18 106/69 (81) 97 01/28/20 04:00 Room Air 01/28/20 03:36 65 01/28/20 00:00 67 01/28/20 00:00 Room Air 01/28/20 00:00 98.0 71 18 102/59 (73) 98 01/27/20 20:00 Room Air 01/27/20 20:00 Room Air 01/27/20 20:00 98.4 75 18 123/65 (84) 97 01/27/20 19:24 73 Intake and Output 01/27/20 01/28/20 19:00 07:00 Intake Total 2460 ml 850 ml Balance 2460 ml 850 ml Intake Oral 1710 ml IV Total 750 ml 850 ml # Voids 2 2 Objective General Appearance: WD/WN HEENT: normocephalic Respiratory/Chest: chest wall non-tender, lungs clear Cardiovascular: normal rate, regular rhythm Abdomen: normal bowel sounds, no organomegaly Extremities: no cyanosis Skin: no ulcers 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 Microbiology Date/Time Source Procedure Growth Status 01/27/20 14:50 Nasopharynx - Final Complete 01/27/20 14:50 Nasopharynx - Final Complete 01/25/20 22:00 Stool Clostridium difficile Toxin Assay - Final Complete Laboratory Tests 01/28/20 04:00: White Blood Count 5.2, Red Blood Count 3.94L, Hemoglobin 14.0L, Hematocrit 37.6L , Mean Corpuscular Volume 95, Mean Corpuscular Hemoglobin 35.4H, Mean Corpuscular Hemoglobin Concent 37.1H, Red Cell Distribution Width 11.1L, Platelet Count 139L, Mean Platelet Volume 5.5L, Neutrophils (%) (Auto) , Lymphocytes (%) (Auto) , Monocytes (%) (Auto) , Eosinophils (%) (Auto) , Basophils (%) (Auto) , Differential Total Cells Counted 100, Neutrophils % ( Manual) 16L, Lymphocytes % (Manual) 68H, Monocytes % (Manual) 15H, Eosinophils % (Manual) 1, Basophils % (Manual) 0, Band Neutrophils 0, Platelet Estimate DecreasedL, Platelet Morphology Normal, Anisocytosis 1+, Sodium Level 142, Potassium Level 3.0L, Chloride Level 108H, Carbon Dioxide Level 26, Anion Gap 8 , Blood Urea Nitrogen 10, Creatinine 1.0, Estimat Glomerular Filtration Rate > 60, Glucose Level 102, Calcium Level 8.1L Current Medications Medications (Trade) Dose Ordered Sig/Edgard Route PRN Reason Start Time Stop Time Status Last Admin Dose Admin Abacavir/ Lamivudine (Epzicom) 1 tab DAILY ORAL 01/27/20 21:00 02/26/20 20:59 01/28/20 09:32 Acetaminophen (Tylenol) 650 mg Q4H PRN ORAL fever 01/25/20 18:30 02/24/20 18:29 Dextrose (Dextrose 50%) 25 ml Q30M PRN IV Hypoglycemia 01/25/20 18:30 04/24/20 18:29 Dextrose (Dextrose 50%) 50 ml Q30M PRN IV Hypoglycemia 01/25/20 18:30 04/24/20 18:29 Dextrose/Sodium Chloride 1,000 ml @ 75 mls/hr [id number] IV 01/25/20 21:00 02/24/20 20:59 01/28/20 14:55 Diphenhydramine HCl (Benadryl) 25 mg Q6H PRN ORAL Itching/Pruritis 01/25/20 18:30 02/24/20 18:29 Heparin Sodium (Porcine) (Heparin 5000 units/ml) 5,000 units EVERY 12 HOURS SUBQ 01/25/20 21:00 03/10/20 20:59 01/27/20 20:57 Metoclopramide HCl (Reglan) 10 mg Q6H PRN IVP servere nauasea 01/25/20 18:30 02/24/20 18:29 Nitroglycerin (Ntg) 0.4 mg Q5M X 3 DOSES PRN SL Prn Chest Pain 01/25/20 18:30 02/24/20 18:29 Ondansetron HCl (Zofran) 4 mg Q6H PRN IVP Nausea & Vomiting 01/25/20 18:30 02/24/20 18:29 Pantoprazole (Protonix) 40 mg DAILY IV 01/26/20 09:00 02/25/20 08:59 01/28/20 09:32 Polyethylene Glycol (Miralax) 17 gm HSPRN PRN ORAL Constipation 01/25/20 18:30 02/24/20 18:29 Potassium Chloride (K-Dur) 40 meq TWICE A DAY ORAL 01/28/20 14:00 01/30/20 13:59 01/28/20 14:55 Promethazine HCl (Phenergan) 25 mg Q6H PRN IM Refractory N/V 01/25/20 18:30 02/24/20 18:29 Raltegravir (Isentress) 400 mg Q12HR ORAL 01/27/20 21:00 02/26/20 20:59 01/28/20 09:32 Temazepam (Restoril) 15 mg HSPRN PRN ORAL Insomnia 01/25/20 18:30 02/01/20 18:29 01/27/20 20:56 Yi Matthew MD Jan 28, 2020 16:28
[2020-01-28] MEDS ORDERED: D5 1/2NS 1000ml IV ONE (16:44)
--- NOTE | 2020-01-28 19:35 | NUR ---
HAND-OFF: Report given to Veronique/Samia FRANKS. Pt. remain stable.
--- NOTE | 2020-01-28 19:38 | NUR ---
NURSE NOTES: Received report from TINY Mcdonnell. Patient is awake, alert and oriented x 4. Patient is on low fat diet, on room air, on full code. Skin is intact. Patient has IV site on Left forearm G-22 IVF of D5 1/2 NS @ 75 cc/hour. Safety measures are in placed. Call light and bedside table within reach, bed in locked and lowest position. Side rails up x 2. Bed alarm is on. Encourage to call for any assistance. Will continue plan of care.
[2020-01-28 20:00] VITALS: BP 133/82
[2020-01-29] VITALS: BP 112/55
[2020-01-29 04:00] VITALS: BP 100/55
[2020-01-29 06:09] LABS: HEMATOCRIT 37.8 % (42.0-52.0); HEMOGLOBIN 14.2 G/DL (14.2-18.0); MEAN CORPUSCULAR VOLUME 95 FL (80-99); PLATELET COUNT 152 K/UL (150-450); RED CELL DISTRIBUTION WIDTH 10.5 % (11.6-14.8); WHITE BLOOD COUNT 5.6 K/UL (4.8-10.8)
[2020-01-29 06:10] LABS: ANION GAP 10 mmol/L (5-15); BLOOD UREA NITROGEN 10 mg/dL (7-18); CALCIUM 8.5 MG/DL (8.5-10.1); CARBON DIOXIDE 23 MMOL/L (21-32); CHLORIDE 112 MMOL/L (98-107); CREATININE 0.9 MG/DL (0.55-1.30); POTASSIUM 3.4 MMOL/L (3.5-5.1); SODIUM 145 MMOL/L (136-145)
--- NOTE | 2020-01-29 07:12 | NUR ---
HAND-OFF: Report given to TINY Mcdonough. Patient is on comfortable position, no complaints at this time. Plan of care endorsed.
--- NOTE | 2020-01-29 07:12 | NUR ---
NURSE NOTES: Received report from Veronique RN. Pt AOX4 and denied pain. On room air. Sating 98% on room air. Bed in lowest position and locked. IV site in LFA 22g SL patent and asymptomatic. Call light within easy reach. Sinus rhythm noted. Covid-19 result is pending. Will continue to plan of care.
[2020-01-29 07:46] VITALS: BP 112/61
[2020-01-29] MEDS: Pantoprazole Inj IV SCH (08:48)
[2020-01-29] MEDS: Epzicom tab ORAL SCH ×2 (08:49→09:00)
[2020-01-29] MEDS: Isentress 400mg tab ORAL SCH (08:49)
[2020-01-29] MEDS: Heparin 5000 units/ml inj SUBQ SCH (09:21)
--- NOTE | 2020-01-29 11:01 | Pulmonology Progress Note ---
Assessment/Plan Problems: (1) Nausea, vomiting, and diarrhea (2) Pancreatitis (3) Enteritis (4) History of asthma (5) HIV disease Assessment/Plan feeling better watch off abx f/u lipase, Amylase Resume HAART meds by ID stool cultures ordered, still pending From ID note: -If patient, medically stable for discharge can discharge following home isolation until results of COVID 19 is back .They should stay at home and separate themselves from other people in their home (stay in different room, use separate bathroom. Wear a facemask when need to be in the same room. Avoid sharing household items. If COVID19 test is positive, they should continue isolation for 7 days from onset of symptoms or 3 days after fever resolution, which ever is longer. Please refer to [email or web address] Subjective ROS Limited/Unobtainable: No Constitutional: Reports: no symptoms HEENT: Repors: no symptoms Respiratory: Reports: no symptoms Allergies: Coded Allergies: ATAZANAVIR (Verified Allergy, Unknown, 11/24/11) CALCIUM CARBONATE (Verified Allergy, Unknown, 11/24/11) DELAVIRDINE (Verified Allergy, Unknown, 11/24/11) MAGNESIUM (Verified Allergy, Unknown, 11/24/11) MOXIFLOXACIN (Verified Allergy, Unknown, RASH,ITCH, 11/26/11) TENOFOVIR (Verified Allergy, Unknown, 11/24/11) VENLAFAXINE (Verified Allergy, Unknown, 11/24/11) Objective Last 24 Hour Vital Signs Date Time Temp Pulse Resp B/P (MAP) Pulse Ox O2 Delivery O2 Flow Rate FiO2 01/29/20 09:00 Room Air 01/29/20 08:00 Room Air 01/29/20 07:46 97.6 71 18 112/61 (78) 97 01/29/20 04:00 97.3 64 18 100/55 (70) 97 01/29/20 04:00 Room Air 01/29/20 00:00 96.8 70 17 112/55 (74) 97 01/29/20 00:00 Room Air 01/28/20 21:00 Room Air 01/28/20 20:00 98.0 69 18 133/82 (99) 99 01/28/20 20:00 Room Air 01/28/20 19:25 66 3/29/20 16:00 Room Air 01/28/20 16:00 98.1 73 20 137/81 (99) 99 01/28/20 15:20 64 01/28/20 12:00 Room Air 01/28/20 12:00 97.0 73 21 118/68 (85) 99 01/28/20 11:36 67 Intake and Output 01/28/20 01/29/20 19:00 07:00 Intake Total 1230 ml 775 ml Output Total 600 ml Balance 1230 ml 175 ml Intake Oral 480 ml 400 ml IV Total 750 ml 375 ml Output Urine Total 600 ml # Voids 2 3 Objective General Appearance: WD/WN HEENT: normocephalic Respiratory/Chest: chest wall non-tender, lungs clear Cardiovascular: normal rate, regular rhythm Abdomen: normal bowel sounds, no organomegaly Extremities: no cyanosis Skin: no ulcers 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 Microbiology Date/Time Source Procedure Growth Status 01/27/20 14:50 Nasopharynx - Final Complete 01/27/20 14:50 Nasopharynx - Final Complete Laboratory Tests 01/29/20 04:10: White Blood Count 5.6, Red Blood Count 4.00L, Hemoglobin 14.2, Hematocrit 37.8L , Mean Corpuscular Volume 95, Mean Corpuscular Hemoglobin 35.5H, Mean Corpuscular Hemoglobin Concent 37.5H, Red Cell Distribution Width 10.5L, Platelet Count 152, Mean Platelet Volume 6.9, Neutrophils (%) (Auto) , Lymphocytes (%) (Auto) , Monocytes (%) (Auto) , Eosinophils (%) (Auto) , Basophils (%) (Auto) , Sodium Level 145, Potassium Level 3.4L, Chloride Level 112H, Carbon Dioxide Level 23, Anion Gap 10, Blood Urea Nitrogen 10, Creatinine 0.9, Estimat Glomerular Filtration Rate > 60, Glucose Level 112H, Calcium Level 8.5 Current Medications Medications (Trade) Dose Ordered Sig/Edgard Route PRN Reason Start Time Stop Time Status Last Admin Dose Admin Abacavir/ Lamivudine (Epzicom) 1 tab DAILY ORAL 01/27/20 21:00 02/26/20 20:59 01/28/20 09:32 Acetaminophen (Tylenol) 650 mg Q4H PRN ORAL fever 01/25/20 18:30 4/25/20 18:29 Dextrose (Dextrose 50%) 25 ml Q30M PRN IV Hypoglycemia 01/25/20 18:30 04/24/20 18:29 Dextrose (Dextrose 50%) 50 ml Q30M PRN IV Hypoglycemia 01/25/20 18:30 04/24/20 18:29 Diphenhydramine HCl (Benadryl) 25 mg Q6H PRN ORAL Itching/Pruritis 01/25/20 18:30 02/24/20 18:29 Heparin Sodium (Porcine) (Heparin 5000 units/ml) 5,000 units EVERY 12 HOURS SUBQ 01/25/20 21:00 03/10/20 20:59 01/29/20 09:21 Metoclopramide HCl (Reglan) 10 mg Q6H PRN IVP servere nauasea 01/25/20 18:30 02/24/20 18:29 Nitroglycerin (Ntg) 0.4 mg Q5M X 3 DOSES PRN SL Prn Chest Pain 01/25/20 18:30 02/24/20 18:29 Ondansetron HCl (Zofran) 4 mg Q6H PRN IVP Nausea & Vomiting 01/25/20 18:30 02/24/20 18:29 Pantoprazole (Protonix) 40 mg DAILY IV 01/26/20 09:00 02/25/20 08:59 01/29/20 08:48 Polyethylene Glycol (Miralax) 17 gm HSPRN PRN ORAL Constipation 01/25/20 18:30 02/24/20 18:29 Potassium Chloride (K-Dur) 40 meq TWICE A DAY ORAL 01/28/20 14:00 01/30/20 13:59 01/29/20 08:48 Promethazine HCl (Phenergan) 25 mg Q6H PRN IM Refractory N/V 01/25/20 18:30 02/24/20 18:29 Raltegravir (Isentress) 400 mg Q12HR ORAL 01/27/20 21:00 02/26/20 20:59 01/28/20 21:43 Temazepam (Restoril) 15 mg HSPRN PRN ORAL Insomnia 01/25/20 18:30 02/01/20 18:29 01/28/20 21:43 Yi Matthew MD Jan 29, 2020 11:01
[2020-01-29 12:00] VITALS: BP 132/65
--- NOTE | 2020-01-29 12:09 | General Progress Note ---
Assessment/Plan Assessment/Plan: Problems: (1) Nausea, vomiting, and diarrhea (2) Pancreatitis (3) Enteritis (4) History of asthma (5) HIV disease (6) diverticulosis (7) Hiatal hernia (8) kidney stone neg stool C.diff prn imodium repeat labs will fu Subjective Allergies: Coded Allergies: ATAZANAVIR (Verified Allergy, Unknown, 11/24/11) CALCIUM CARBONATE (Verified Allergy, Unknown, 11/24/11) DELAVIRDINE (Verified Allergy, Unknown, 11/24/11) MAGNESIUM (Verified Allergy, Unknown, 11/24/11) MOXIFLOXACIN (Verified Allergy, Unknown, RASH,ITCH, 11/26/11) TENOFOVIR (Verified Allergy, Unknown, 11/24/11) VENLAFAXINE (Verified Allergy, Unknown, 11/24/11) Objective Last 24 Hour Vital Signs Date Time Temp Pulse Resp B/P (MAP) Pulse Ox O2 Delivery O2 Flow Rate FiO2 01/29/20 09:00 Room Air 01/29/20 08:00 Room Air 01/29/20 07:46 97.6 71 18 112/61 (78) 97 01/29/20 04:00 97.3 64 18 100/55 (70) 97 01/29/20 04:00 Room Air 01/29/20 00:00 96.8 70 17 112/55 (74) 97 01/29/20 00:00 Room Air 01/28/20 21:00 Room Air 01/28/20 20:00 98.0 69 18 133/82 (99) 99 01/28/20 20:00 Room Air 01/28/20 19:25 66 01/28/20 16:00 Room Air 01/28/20 16:00 98.1 73 20 137/81 (99) 99 01/28/20 15:20 64 Intake and Output 01/28/20 01/29/20 19:00 07:00 Intake Total 1230 ml 775 ml Output Total 600 ml Balance 1230 ml 175 ml Intake Oral 480 ml 400 ml IV Total 750 ml 375 ml Output Urine Total 600 ml # Voids 2 3 Laboratory Tests 01/29/20 04:10: White Blood Count 5.6, Red Blood Count 4.00L, Hemoglobin 14.2, Hematocrit 37.8L , Mean Corpuscular Volume 95, Mean Corpuscular Hemoglobin 35.5H, Mean Corpuscular Hemoglobin Concent 37.5H, Red Cell Distribution Width 10.5L, Platelet Count 152, Mean Platelet Volume 6.9, Neutrophils (%) (Auto) , Lymphocytes (%) (Auto) , Monocytes (%) (Auto) , Eosinophils (%) (Auto) , Basophils (%) (Auto) , Sodium Level 145, Potassium Level 3.4L, Chloride Level 112H, Carbon Dioxide Level 23, Anion Gap 10, Blood Urea Nitrogen 10, Creatinine 0.9, Estimat Glomerular Filtration Rate > 60, Glucose Level 112H, Calcium Level 8.5 Height (Feet): 5 Height (Inches): 3.00 Weight (Pounds): 170 General Appearance: alert EENT: normal ENT inspection Neck: supple Cardiovascular: normal rate Respiratory/Chest: decreased breath sounds Abdomen: normal bowel sounds, non tender, soft Extremities: non-tender Arden Cesar MD Jan 29, 2020 12:09
--- NOTE | 2020-01-29 13:14 | NUR ---
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 97.6 HR 64 RR 18 B/P 100/55 RA 98% K 3.4 COVID-19 PENDING IS: PROTONIX IV K-DUR PO HEPARIN SUBC DROPLET ISOLATION TELE STATUS
--- NOTE | 2020-01-29 15:00 | NUR ---
NURSE NOTES: Dr. Matthew ordered to discharge the pt if pt agrees to stay quarantined at home until he gets the [place] [facility] [place]
--- NOTE | 2020-01-29 15:30 | NUR ---
NURSE NOTES: Dr. Goodwin cleared the patient for discharge
[2020-01-29 16:00] VITALS: BP 124/71
--- NOTE | 2020-01-29 16:00 | NUR ---
NURSE NOTES: Reinforced low fat diet
--- NOTE | 2020-01-29 16:35 | NUR ---
Discharge: Patient is being discharged from medical care. Awake, alert and oriented x4. After care instructions, including referral to community resources were given. Pt agrees to stay quarantined at home until he gets the results of Covid[place] [facility] [place] Pt will discharge home via own car which is parking in [facility] parking lot. Pt able to verbalize the importance of self isolation until he gets the results of Covid 19. Patient verbalized understanding of After care instructions; at this time patient does not request medications, equipment or placement. Patient signed patient consent in the medical record for patient destination upon discharge. Pt will gets his food and supplies from his friends but at the door in his house and he states that he will not allow anyone into his room until he gets negative results of Covid 19. All medical devices such as IV, monitoring tech and ID band were removed. Patient ambulated out with all personal belongings with steady gait with surgical mask covering his mouth with RN's assist. JOE direct phone number provided.
--- NOTE | 2020-01-29 19:33 | Infectious Diseases Prog Note ---
Assessment/Plan Assessment/Plan R/o COVID 19 (presenting with GI symptoms) Likely Acute pancreatitis Diarrhea/Enteritis, improved -Cdiff neg -CT abd/p: : Findings may suggest a mild enterocolitis/diarrheal illness in the appropriate clinical setting. No evidence of small bowel obstruction. Diverticulosis without evidence of acute diverticulitis. Tiny hiatal hernia. Subcentimeter nonobstructing stone in the midpole the left kidney. No evidence of hydronephrosis bilaterally. Prior decompressed, precluding reliable evaluation. Prominent prostate with coarse central calcifications. 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 Similar findings were seen previously. -Abd US: Possible subcentimeter nonobstructing left renal stone. No evidence hydronephrosis bilaterally. No evidence of cholelithiasis or biliary ductal dilatation. Afebrile No leukocytosis MARGOTH, improving HIV (CD4 >700, VL undetectable 3months ago; dx 1989) on HAART appendectomy ~10 yrs ago asthma Plan: -Continue to monitor off abx -f/u cx -Monitor CBC/CMP, temperatures -stool cx, Influenza sc -continue HAART: Issentress and Epzicom -COVID 19 testing -Droplets/Contact/Eye shield -discussed home isolation precaution. pt expressed understanding. -If patient, medically stable for discharge can discharge following home isolation until results of COVID 19 is back .They should stay at home and separate themselves from other people in their home (stay in different room, use separate bathroom. Wear a facemask when need to be in the same room. Avoid sharing household items. If COVID19 test is positive, they should continue isolation for 7 days from onset of symptoms or 3 days after fever resolution, which ever is longer. Please refer to [email or web address] Thank you for consulting [facility]. Will continue to follow along with you. Discussed with RN. Subjective Allergies: Coded Allergies: ATAZANAVIR (Verified Allergy, Unknown, 11/24/11) CALCIUM CARBONATE (Verified Allergy, Unknown, 11/24/11) DELAVIRDINE (Verified Allergy, Unknown, 11/24/11) MAGNESIUM (Verified Allergy, Unknown, 11/24/11) MOXIFLOXACIN (Verified Allergy, Unknown, RASH,ITCH, 11/26/11) TENOFOVIR (Verified Allergy, Unknown, 11/24/11) VENLAFAXINE (Verified Allergy, Unknown, 11/24/11) Subjective *Late entry* Afebrile. Pt feels well. Had a formed bowel movement. No nausea, cough, sob. abdominal pain. Objective Vital Signs Last 24 Hour Vital Signs Date Time Temp Pulse Resp B/P (MAP) Pulse Ox O2 Delivery O2 Flow Rate FiO2 01/29/20 16:00 97.7 72 18 124/71 (88) 97 01/29/20 16:00 Room Air 01/29/20 12:00 97.7 68 18 132/65 (87) 97 01/29/20 12:00 Room Air 01/29/20 09:00 Room Air 01/29/20 08:00 Room Air 01/29/20 07:46 97.6 71 18 112/61 (78) 97 01/29/20 04:00 97.3 64 18 100/55 (70) 97 01/29/20 04:00 Room Air 01/29/20 00:00 96.8 70 17 112/55 (74) 97 01/29/20 00:00 Room Air 01/28/20 21:00 Room Air 01/28/20 20:00 98.0 69 18 133/82 (99) 99 01/28/20 20:00 Room Air Height (Feet): 5 Height (Inches): 3.00 Weight (Pounds): 170 General Appearance: no acute distress HEENT: atraumatic, anicteric Respiratory/Chest: normal breath sounds, no respiratory distress, no accessory muscle use Abdomen: soft, non tender, no organomegaly, non distended, no mass Neurologic/Psychiatric: alert, oriented x 3, responsive, normal mood/affect Microbiology Date/Time Source Procedure Growth Status 01/27/20 14:50 Nasopharynx - Final Complete 01/27/20 14:50 Nasopharynx - Final Complete Laboratory Tests Test 01/29/20 04:10 White Blood Count 5.6 K/UL (4.8-10.8) Red Blood Count 4.00 M/UL (4.70-6.10) L Hemoglobin 14.2 G/DL (14.2-18.0) Hematocrit 37.8 % (42.0-52.0) L Mean Corpuscular Volume 95 FL (80-99) Mean Corpuscular Hemoglobin 35.5 PG (27.0-31.0) H Mean Corpuscular Hemoglobin Concent 37.5 G/DL (32.0-36.0) H Red Cell Distribution Width 10.5 % (11.6-14.8) L Platelet Count 152 K/UL (150-450) Mean Platelet Volume 6.9 FL (6.5-10.1) Neutrophils (%) (Auto) % (45.0-75.0) Lymphocytes (%) (Auto) % (20.0-45.0) Monocytes (%) (Auto) % (1.0-10.0) Eosinophils (%) (Auto) % (0.0-3.0) Basophils (%) (Auto) % (0.0-2.0) Sodium Level 145 MMOL/L (136-145) Potassium Level 3.4 MMOL/L (3.5-5.1) L Chloride Level 112 MMOL/L (98-107) H Carbon Dioxide Level 23 MMOL/L (21-32) Anion Gap 10 mmol/L (5-15) Blood Urea Nitrogen 10 mg/dL (7-18) Creatinine 0.9 MG/DL (0.55-1.30) Estimat Glomerular Filtration Rate > 60 mL/min (>60) Glucose Level 112 MG/DL (74-106) H Calcium Level 8.5 MG/DL (8.5-10.1) Umm Goodwin MD Jan 29, 2020 19:33
--- NOTE | 2020-01-30 09:16 | Discharge Summary ---
Discharge Summary Discharge Summary _ DATE OF ADMISSION: 01/25/2020 DATE OF DISCHARGE: 01/29/2020 DISCHARGED BY: Dr Mcleod REASON FOR ADMISSION: 54 years old male with past medical history of HIV, asthma, presented to emergency department with nausea ,vomiting ,diarrhea and abdominal pain for 3 days. Per patient, last CD4 count greater than 700 and HIV load undetectable. Patient is taking his antiviral medication. CT scan of the abdomen and pelvis demonstrated mild enterocolitis/diarrheal illness. No evidence of small bowel obstruction. Diverticulosis without evidence of acute diverticulitis. Laboratory work-up revealed no leukocytosis, stable hemoglobin, hematocrit and platelet count. Potassium 3.3. Lipase 860. AST 41, ALT 48. BUN 21, creatinine 1.4. In emergency department patient received 1 L of fluid and provided with Pepcid and Zofran. Potassium was replaced. Patient admitted for further management. CONSULTANTS: pulmonary/library media specialist Dr Matthew ID specialist Dr. Aden GI specialist Dr. Cesar [facility]SE: Patient initially was kept n.p.o. IV hydration continued. H2 blockers provided. Antiemetic provided as needed. Pain management was addressed appropriately. DVT prophylaxis provided. Abdominal ultrasound revealed no evidence of cholelithiasis or biliary ductal dilatation. Echogenic focus within the lower pole of left kidney, which may represent a nonobstructing stone. No evidence of hydronephrosis bilaterally. Stool for C. difficile was negative. Imodium provided as needed. Coronavirus test was undetectable. Patient was kept off antibiotics. Lipase trended down to normal 138. Patient remained afebrile , no leukocytosis. HAART therapy continued Renal parameters and electrolytes were closely monitored. Electrolytes corrected as needed. Nephrotoxic's were avoided. Prior to discharge BUN 10, creatinine 0.9. Diet was advanced as tolerated. Patient was able to tolerate diet. Nausea vomiting and diarrhea subsided. No further abdominal pain. Patient clinically stabilized and was ready for discharge home. FINAL DIAGNOSES: Nausea vomiting and diarrhea-resolved Enteritis Pancreatitis Abdominal pain due to pancreatitis-resolved Acute kidney injury , likely secondary to hypovolemia and dehydration -resolved History of asthma HIV disease Hypokalemia Diverticulosis Hiatal hernia DISCHARGE MEDICATIONS: See Medication Reconciliation list. DISCHARGE INSTRUCTIONS: Patient was discharged home. Follow-up with a primary care provider in 1 week. I have been assigned to dictate discharge summary for this account. I was not involved in the patient's management. Sarai Murillo NP Jan 30, 2020 09:16
== END 2020-01-29 16:35 | disposition home or self-care (01) | DRG 977 ==
LOC: EMR 16:53 → 3E 18:15 → EDBEDREQ 19:48 → 3E 01-27 15:00 → 2W 01-27 18:57
DX: K52.9 Noninfective gastroenteritis and colitis, unspecified (principal); B20 Human immunodeficiency virus [HIV] disease; K85.90 Acute pancreatitis without necrosis or infection, unspecified; N17.9 Acute kidney failure, unspecified; E87.6 Hypokalemia; E86.0 Dehydration; E86.1 Hypovolemia; K57.30 Diverticulosis of large intestine without perforation or abscess without bleeding; N20.0 Calculus of kidney; K44.9 Diaphragmatic hernia without obstruction or gangrene; J45.909 Unspecified asthma, uncomplicated; Z03.818 Encounter for observation for suspected exposure to other biological agents ruled out; Z79.51 Long term (current) use of inhaled steroids; Z79.899 Other long term (current) drug therapy; Z90.49 Acquired absence of other specified parts of digestive tract
CPT/HCPCS: 36415; 74177; 76700; 80048; 80053; 82150; 83690; 85007; 85025; 85730; 86710; 87045; 87324; 87635; 96361; 96374; 96375; 99285; J2405; J7030; J8499

== ENCOUNTER 2020-05-07 16:47 | Emergency (ER) | payer MEDICARE, MEDICAID ==
[~2020-05-07] VITALS: Ht 160 cm; Wt 77.1 kg
[~2020-05-07 16:47] MED LIST changes: +EPIVIR150 MG ORAL; +ISENTRESS400 MG ORAL; +SYMBICORT 16010.2 G1 IH; +VENTOLIN HFA18 GM INH
[2020-05-07 16:53] VITALS: BP 148/81
--- NOTE | 2020-05-07 17:00 | NUR ---
ED Nurse Note: patient walked into ED from home c/o epigastric abdominal pain radiating to his left side of the abdomen and left flank for 8 days, patient c/o nausea, vomiting and diarrhea. patient reported that diarrhea was initially black, but now it is somewhat black to brown. patient reports vomiting and diarrhea is getting a little better but abdominal pain is getting worse. patient's left side of the abdomen is tender. patient is alert awake x4 ambulatory, breathing unlabored and even, speaking in full sentences. patient placed on a hospital gown.
[2020-05-07] MEDS ORDERED: Omnipaque-300 100ml vial INJ PRN (17:15)
[2020-05-07] MEDS ORDERED: Morphine Sulfate 2mg/ml Inj(IV/IM USE ONLY) IVP ONE (17:15)
[2020-05-07] MEDS ORDERED: TEMAZEPAM30 MG ORAL (17:16)
--- NOTE | 2020-05-07 17:29 | Emergency Room Report ---
History of Present Illness General Chief Complaint: Abdominal Pain Source: Patient Present Illness HPI 54-year-old male with history of HIV here complaining diffuse abdominal pain mainly concentrated in left lower quadrant x1 week. Patient was previously seen at [facility] for diverticulosis. Patient denies any alcohol intake, tobacco smoke and drug use. Reports that he is compliant with taking his medication and his last visit with his infectious disease provider was 12 days ago. Patient reports that his CD4 counts are within normal limits as well as low viral loads. Reports that he has been having few bouts of nonbloody emesis feeling nauseated, and few bouts of nonbloody diarrhea. Rates the pain 10 out of 10 at this time without radiation. Denies chest pain, shortness of breath, cough and congestion. Denies loss of taste and smell. Denies fever and chills , headache and dizziness. Denies all urinary symptoms. vital signs are within normal limits. 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 COVID-19 Screening: Negative COVID-19 COVID-19 Testing Source: Nose, throat and blood Patient History Past Medical History: see triage record Past Surgical History: none Pertinent Family History: none Immunizations: UTD Reviewed Nursing Documentation: PMH: Agreed; PSxH: Agreed Nursing Documentation-PMH Past Medical History: No History, Except For Hx Cardiac Problems: No - HIV Hx Hypertension: No Hx Pacemaker: No Hx Asthma: Yes - Bronchitis Hx COPD: No Hx Diabetes: No Hx Cancer: No Hx Gastrointestinal Problems: No Hx Dialysis: No History Of Psychiatric Problem: No Hx Neurological Problems: No Hx Cerebrovascular Accident: No Hx Seizures: No Review of Systems All Other Systems: negative except mentioned in HPI Physical Exam Vital Signs Date Time Temp Pulse Resp B/P (MAP) Pulse Ox O2 Delivery O2 Flow Rate FiO2 05/07/20 16:53 96.6 85 14 148/81 (103) 99 Room Air Sp02 EP Interpretation: reviewed, normal General Appearance: no apparent distress, alert, GCS 15, non-toxic Head: normocephalic, atraumatic Eyes: bilateral eye normal inspection, bilateral eye PERRL ENT: hearing grossly normal, normal pharynx, no angioedema, normal voice Neck: full range of motion, supple/symm/no masses Respiratory: chest non-tender, lungs clear, normal breath sounds, no rhonchi, no respiratory distress, no retraction, no wheezing, speaking full sentences Cardiovascular #1: regular rate, rhythm, no edema, no murmur Gastrointestinal: no peritonitis, no bruit, non-distended, no hernia, no pulsatile mass, no rebound, guarding - Left lower quadrant Rectal: deferred Genitourinary: no CVA tenderness Musculoskeletal: back normal Neurologic: alert, motor strength/tone normal, oriented x3, sensory intact, responsive, speech normal Psychiatric: judgement/insight normal, memory normal, mood/affect normal, no suicidal/homicidal ideation Skin: no rash Lymphatic: no adenopathy Medical Decision Making PA Attestation All diagnoses and treatment plans were reviewed and discussed with my supervising physician Dr. Garcia Diagnostic Impression: Primary Impression: Diverticulosis Additional Impressions: Methamphetamine abuse Enlarged prostate ER Course 54-year-old male with history of HIV here complaining diffuse abdominal pain mainly concentrated in left lower quadrant x1 week. Patient was previously seen at [facility] for diverticulosis. Patient denies any alcohol intake, tobacco smoke and drug use. Reports that he is compliant with taking his medication and his last visit with his infectious disease provider was 12 days ago. Patient reports that his CD4 counts are within normal limits as well as low viral loads. Reports that he has been having few bouts of nonbloody emesis feeling nauseated, and few bouts of nonbloody diarrhea. Rates the pain 10 out of 10 at this time without radiation. Denies chest pain, shortness of breath, cough and congestion. Denies loss of taste and smell. Denies fever and chills , headache and dizziness. Denies all urinary symptoms. vital signs are within normal limits. Ddx considered but are not limited to: appendicitis, cholecystis, gastritis, gastroenteritis, UTI, pyelonephritis, SBO, diverticulitis, influenza with GI manifestation, DC, pancreatitis Vital signs: are WNL, pt. is afebrile H&PE are most consistent with: Diverticulosis without diverticulitis, methamphetamine abuse, enlarged prostate ORDERS: abdominal CT, abdominal pain set, Cipro, Flagyl, dicyclomine ED INTERVENTIONS: NS bolus, Zofran, morphine, Pepcid DISCHARGE: At this time pt. is stable for d/c to home. Will provide printed patient care instructions, and any necessary prescriptions. Care plan and follow up instructions have been discussed with the patient prior to discharge. 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 Interpretation: no consolidation, no effusion, no pneumothorax Impression: No acute disease Electronically Signed by: Candy Schneider PA-C CT/MRI/US Diagnostic Results CT/MRI/US Diagnostic Results : Imaging Test Ordered: ct abdomen pelvis with contrast Impression COMPARISON: CT abdomen and pelvis 01/25/2020 FINDINGS: Lung bases: Unremarkable. ABDOMEN: Liver: Unremarkable. Gallbladder and bile ducts: Unremarkable. Pancreas: Unremarkable. Spleen: Unremarkable. Adrenals: Unremarkable. Kidneys and ureters: Nonobstructing nephrolithiasis in the left lower pole. Unremarkable appearance of the right kidney. No hydronephrosis. Stomach and bowel: Colonic diverticulosis without diverticulitis. PELVIS: Appendix: No findings to suggest acute appendicitis. Bladder: Unremarkable. Reproductive: Prostatomegaly. ABDOMEN and PELVIS: Intraperitoneal space: Unremarkable. No free air. No significant fluid collection. Bones/joints: Bilateral pars defects at L5 with grade 1 anterolisthesis at L5- S1. Soft tissues: Unremarkable. Vasculature: Unremarkable. Lymph nodes: Unremarkable. IMPRESSION: 1. Colonic diverticulosis without diverticulitis. 2. Nonobstructing nephrolithiasis in the left renal lower pole. 3. Prostatomegaly. Last Vital Signs Date Time Temp Pulse Resp B/P (MAP) Pulse Ox O2 Delivery O2 Flow Rate FiO2 05/07/20 17:07 85 14 Room Air 05/07/20 16:53 96.6 148/81 99 Disposition: HOME, SELF-CARE Condition: Stable Scripts Acetaminophen* (TYLENOL EXTRA STRENGTH*) 500 Mg Tablet 500 MG ORAL Q8H PRN for Prn Headache/Temp > 101, #30 TAB 0 Refills Prov: Candy Brar 05/07/20 Dicyclomine Hcl* (DICYCLOMINE HCL*) 10 Mg Capsule 10 MG ORAL QID, #20 CAP Prov: Candy Brar 05/07/20 Metronidazole* (FLAGYL*) 500 Mg Tablet 500 MG ORAL EVERY 8 HOURS for 7 Days, #21 TAB Prov: Candy Brar 05/07/20 Ciprofloxacin* (CIPRO*) 500 Mg Tablet 500 MG PO BID for 7 Days, #14 TAB Prov: Candy Brar 05/07/20 Referrals: NON PHYSICIAN (PCP) Patient Instructions: Diverticulosis Additional Instructions: Take medication as directed, follow-up with your primary care provider, increase oral hydration, if worsening symptoms return to the emergency room also follow-up with your urologist regarding prostatomegaly Candy Brar May 07, 2020 17:29
[2020-05-07 17:34] LABS: BASOPHILS % (AUTO) 1.2 % (0.0-2.0); EOSINOPHILS % (AUTO) 1.7 % (0.0-3.0); HEMATOCRIT 43.8 % (42.0-52.0); HEMOGLOBIN 15.4 G/DL (14.2-18.0); LYMPHOCYTES % (AUTO) 41.8 % (20.0-45.0); MEAN CORPUSCULAR VOLUME 99 FL (80-99); MONOCYTES % (AUTO) 11.8 % (1.0-10.0); NEUTROPHILS % (AUTO) 43.6 % (45.0-75.0); PLATELET COUNT 240 K/UL (150-450); RED BLOOD COUNT 4.44 M/UL (4.70-6.10); RED CELL DISTRIBUTION WIDTH 12.1 % (11.6-14.8); WHITE BLOOD COUNT 7.5 K/UL (4.8-10.8)
[2020-05-07 17:46] LABS: ANION GAP 10 mmol/L (5-15); BLOOD UREA NITROGEN 16 mg/dL (7-18); CALCIUM 8.5 MG/DL (8.5-10.1); CARBON DIOXIDE 27 MMOL/L (21-32); CHLORIDE 105 MMOL/L (98-107); CREATININE 1.5 MG/DL (0.55-1.30); POTASSIUM 3.8 MMOL/L (3.5-5.1); SODIUM 142 MMOL/L (136-145)
[2020-05-07 17:53] LABS: ALANINE AMINOTRANSFERASE 60 U/L (12-78); ALBUMIN 3.7 G/DL (3.4-5.0); ALKALINE PHOSPHATASE 127 U/L (46-116); ASPARTATE AMINO TRANSFERASE 30 U/L (15-37); BILIRUBIN,TOTAL 0.6 MG/DL (0.2-1.0)
--- NOTE | 2020-05-07 18:17 | NUR ---
ED Nurse Note: patient resting comfortably in bed. received consent for IV contrast for CT. Creatinine 1.5 noted, confirmed with ELDA Gupta and Dr. Garcia that it's ok to proceed with abd CT with contrast.
--- NOTE | 2020-05-07 18:25 | NUR ---
ED Nurse Note: patient taken to CT scan
--- NOTE | 2020-05-07 18:45 | NUR ---
ED Nurse Note: patient taken back from CT scan
--- NOTE | 2020-05-07 18:47 | Diagnostic Imaging Report ---
EXAM: CT Abdomen and Pelvis With Intravenous Contrast CLINICAL HISTORY: PAIN TECHNIQUE: Axial computed tomography images of the abdomen and pelvis with intravenous contrast. CTDI is 7.5 mGy and DLP is 366.5 mGy-cm. One or more of the following dose reduction techniques were used: automated exposure control, adjustment of the mA and/or kV according to patient size, use of iterative reconstruction technique. COMPARISON: CT abdomen and pelvis 01/25/2020 FINDINGS: Lung bases: Unremarkable. ABDOMEN: Liver: Unremarkable. Gallbladder and bile ducts: Unremarkable. Pancreas: Unremarkable. Spleen: Unremarkable. Adrenals: Unremarkable. Kidneys and ureters: Nonobstructing nephrolithiasis in the left lower pole. Unremarkable appearance of the right kidney. No hydronephrosis. Stomach and bowel: Colonic diverticulosis without diverticulitis. PELVIS: Appendix: No findings to suggest acute appendicitis. Bladder: Unremarkable. Reproductive: Prostatomegaly. ABDOMEN and PELVIS: Intraperitoneal space: Unremarkable. No free air. No significant fluid collection. Bones/joints: Bilateral pars defects at L5 with grade 1 anterolisthesis at L5-S1. Soft tissues: Unremarkable. Vasculature: Unremarkable. Lymph nodes: Unremarkable. IMPRESSION: 1. Colonic diverticulosis without diverticulitis. 2. Nonobstructing nephrolithiasis in the left renal lower pole. 3. Prostatomegaly.
[2020-05-07 18:52] LABS: APPEARANCE,URINE CLEAR; BILIRUBIN, URINE NEGATIVE (NEGATIVE); COLOR,URINE PALE YELLOW; GLUCOSE, URINE (UA) NEGATIVE (NEGATIVE); KETONES,URINE NEGATIVE (NEGATIVE); LEUKOCYTE ESTERASE ,URINE NEGATIVE (NEGATIVE); NITRITE,URINE NEGATIVE (NEGATIVE); PH,URINE 7 (4.5-8.0); PROTEIN,URINE NEGATIVE (NEGATIVE); UROBILINOGEN,URINE NORMAL MG/DL (0.0-1.0)
--- NOTE | 2020-05-07 19:06 | NUR ---
HAND-OFF: Report given to Troy Porras RN. endorsed all plan of care to Troy Porras RN using sbar. patient resting in bed stable condition.
[2020-05-07 19:10] VITALS: BP 137/78
--- NOTE | 2020-05-07 19:10 | NUR ---
ED Nurse Note: received report from Cintia FRANKS. Pt chloe, archana, on surveillance system monitor.
[2020-05-07] MEDS ORDERED: TYLENOL EXTRA500 MG ORAL (19:15)
[2020-05-07] MEDS ORDERED: METRONIDAZOLE500 MG ORAL (19:15)
[2020-05-07] MEDS ORDERED: CIPRO500 MG PO (19:15)
[2020-05-07] MEDS ORDERED: DICYCLOMINE HCL10 MG ORAL (19:15)
[2020-05-07] MEDS ORDERED: metroNIDAZOLE 500mg tab ORAL ONE (20:00)
[2020-05-07] MEDS ORDERED: Ciprofloxacin 500mg tab ORAL ONE (20:00)
[2020-05-07 20:05] VITALS: BP 133/83
--- NOTE | 2020-05-07 20:05 | NUR ---
ER DISCHARGE NOTE: Patient is cleared to be discharged per ERPA, pt is aox4, on room air, with stable vital signs. pt was given dc and prescription instructions, pt was able to verbalize understanding, pt id band and iv site removed without complications. pt is able to ambulate with steady gait. pt took all belongings.
--- NOTE | 2020-05-08 13:25 | Diagnostic Imaging Report ---
Indication: Shortness of breath Technique: One view of the chest Comparison: 11/27/2011 Findings: Lungs and pleural spaces are clear. Heart size is normal. No significant change Impression: No acute process
== END 2020-05-07 20:05 | disposition home or self-care (01) ==
LOC: EMR 17:15
DX: K57.90 Diverticulosis of intestine, part unspecified, without perforation or abscess without bleeding (principal); F15.10 Other stimulant abuse, uncomplicated; N40.0 Benign prostatic hyperplasia without lower urinary tract symptoms; Z88.8 Allergy status to other drugs, medicaments and biological substances; B20 Human immunodeficiency virus [HIV] disease; N20.0 Calculus of kidney
CPT/HCPCS: 36415; 71045; 74177; 80053; 80307; 81003; 83605; 83690; 84484; 85025; 85610; 85730; 93005; 96361; 96374; 96375; 99284; G0480; J2270; J2405; J7030; Q9967

== ENCOUNTER → 2020-08-23 | Outpatient (CLI) | payer MEDICARE, MEDICAID ==
[~2020-08-23] MED LIST changes: +CIPRO500 MG PO; +DICYCLOMINE HCL10 MG ORAL; +METRONIDAZOLE500 MG ORAL; +TEMAZEPAM30 MG ORAL; +TYLENOL EXTRA500 MG ORAL
--- NOTE | 2020-08-23 17:23 | Diagnostic Imaging Report ---
EXAM: XR Chest, 2 Views CLINICAL HISTORY: COUGH TECHNIQUE: Frontal and lateral views of the chest. COMPARISON: Chest radiograph On 05/07/2020. FINDINGS: Hardware: None. Lungs/pleura: Mild left basilar atelectasis versus scarring. No focal consolidation. No pleural effusion or pneumothorax. Heart/mediastinum: Stable borderline size of the cardiac silhouette. Soft tissues: Unremarkable. Bones: No acute fracture. Upper abdomen: Normal. IMPRESSION: No acute disease identified.
== END | disposition home or self-care (01) ==
LOC: RAD 15:19
DX: R05 Cough (principal); Z88.8 Allergy status to other drugs, medicaments and biological substances
CPT/HCPCS: 71046